=== PATIENT | female | born 1935 | race Caucasian/White ===

== ENCOUNTER 2017-01-07 10:56 | Outpatient (CLI) | payer MEDICARE, OTHER | END 2017-01-07 10:57 | disposition home or self-care (01) | DX: N64.59 Other signs and symptoms in breast (principal); Z85.3 Personal history of malignant neoplasm of breast ==

== ENCOUNTER 2018-06-25 19:34 | Inpatient (IN) | payer MEDICARE, OTHER ==
--- NOTE | 2018-06-25 20:09 | ED Physician Documentation ---
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: Mastectomy HEENT: Cataracts, Tonsil/Adenoidectomy - Present Medications Home Medications: Ambulatory Orders Medication Instructions Recorded Confirmed Home Medications Unobtainable 04/22/14 04/22/14 [HOME MEDICATIONS UNOBTAINABLE] - Allergies Allergies/Adverse Reactions: Allergies Allergy/AdvReac Type Severity Reaction Status Date / Time Unable to Assess Allergy Verified 06/25/18 19:44 - Social History Does the pt smoke?: No Smoking Status: Never smoker Does the pt drink ETOH?: Yes ETOH Use: Wine Does the pt have substance abuse?: No Results - Vitals Vitals: Vital Signs - 24 hr 06/25/18 19:39 Temperature 36.3 C L Heart Rate 110 H Respiratory 20 Rate Blood Pressure 155/79 H O2 Saturation 98 Oxygen O2 Source [With Activity] Room air O2 Source Room air PD MEDICAL DECISION MAKING - Sepsis Event Vital Signs: Vital Signs - 24 hr 06/25/18 19:39 Temperature 36.3 C L Heart Rate 110 H Respiratory 20 Rate Blood Pressure 155/79 H O2 Saturation 98 Oxygen O2 Source [With Activity] Room air O2 Source Room air
[2018-06-25] MEDS ORDERED: SODIUM CHLORIDE 0.9% 1,000 ML IV ONE (20:58)
[2018-06-25 20:59] LABS: TROPONIN I 0.07 ng/mL (<0.49)
[2018-06-25 21:01] LABS: CREATINE KINASE MB 25.8 ng/mL (0.6-6.3)
[2018-06-25 21:18] LABS: BASOPHILS # (AUTO) 0.1 10^3/uL (0.0-0.1); BASOPHILS % (AUTO) 0.4 %; CALCIUM 9.6 mg/dL (8.5-10.3); CREATININE 1.2 mg/dL (0.4-1.0); HGB - HEMOGLOBIN 15.6 g/dL (12.0-16.0); LYMPHOCYTES # (AUTO) 1.1 10^3/uL (1.5-3.5); LYMPHOCYTES % (AUTO) 7.4 %; MEAN CORPUSCULAR HEMOGLOBIN 30.5 pg (27.0-31.0); MEAN CORPUSCULAR HGB CONC 33.7 g/dL (32.0-36.0); MEAN CORPUSCULAR VOLUME 90.3 fL (81.0-99.0); MEAN PLATELET VOLUME 7.8 fL (7.9-10.8); MONOCYTES # (AUTO) 1.1 10^3/uL (0.0-1.0); MONOCYTES % (AUTO) 6.9 %; NEUTROPHILS # (AUTO) 13.1 10^3/uL (1.5-6.6); NEUTROPHILS % (AUTO) 85.3 %; PLT - PLATELET COUNT 335 10^3/uL (130-450); RED BLOOD COUNT 5.14 10^6/uL (4.20-5.40); RED CELL DISTRIBUTION WIDTH 13.2 % (12.0-15.0); WHITE BLOOD COUNT 15.4 x10^3/uL (4.8-10.8)
[2018-06-25] MEDS ORDERED: SODIUM CHLORIDE 0.9% 1,000 ML IV STA (23:23)
[2018-06-25 23:43] LABS: BILIRUBIN,URINE NEGATIVE (NEGATIVE); GLUCOSE, URINE (UA) NEGATIVE (NEGATIVE); KETONES,URINE (UA) TRACE mg/dL (NEGATIVE); LEUKOCYTE ESTERASE, URINE NEGATIVE (NEGATIVE); NITRITE,URINE NEGATIVE (NEGATIVE); OCCULT BLOOD,URINE NEGATIVE (NEGATIVE); PROTEIN,URINE NEGATIVE (NEGATIVE); UROBILINOGEN,URINE 0.2 (NORMAL) E.U./dL (NORMAL)
[2018-06-25 23:44] LABS: CLARITY,URINE CLEAR (CLEAR)
[2018-06-25] MEDS ORDERED: ONDANSETRON ODT 4 MG TABLET TL PRN (23:54)
[2018-06-25] MEDS ORDERED: SODIUM CHLORIDE FLUSH 0.9% 10 ML SYRINGE IVP PRN (23:54)
[2018-06-25] MEDS ORDERED: oxyCODONE 5 MG TABLET PO PRN (23:54)
[2018-06-25] MEDS ORDERED: ONDANSETRON 4 MG/2 ML VIAL IVP PRN (23:54)
[2018-06-26] MEDS: SODIUM CHLORIDE 0.9% 1,000 ML IV SCH ×2 (01:28→11:34)
[2018-06-26] MEDS: SODIUM CHLORIDE FLUSH 0.9% 10 ML SYRINGE IVP SCH ×3 (01:29→16:50)
[2018-06-26 02:36] LABS: BASOPHILS # (AUTO) 0.1 10^3/uL (0.0-0.1); BASOPHILS % (AUTO) 1.2 %; EOSINOPHILS % (AUTO) 0.1 %; HGB - HEMOGLOBIN 12.9 g/dL (12.0-16.0); LYMPHOCYTES # (AUTO) 1.3 10^3/uL (1.5-3.5); LYMPHOCYTES % (AUTO) 12.7 %; MEAN CORPUSCULAR HEMOGLOBIN 31.4 pg (27.0-31.0); MEAN CORPUSCULAR HGB CONC 34.6 g/dL (32.0-36.0); MEAN CORPUSCULAR VOLUME 90.7 fL (81.0-99.0); MEAN PLATELET VOLUME 7.8 fL (7.9-10.8); MONOCYTES # (AUTO) 0.8 10^3/uL (0.0-1.0); MONOCYTES % (AUTO) 7.2 %; NEUTROPHILS # (AUTO) 8.2 10^3/uL (1.5-6.6); NEUTROPHILS % (AUTO) 78.8 %; PLT - PLATELET COUNT 250 10^3/uL (130-450); RED BLOOD COUNT 4.11 10^6/uL (4.20-5.40); RED CELL DISTRIBUTION WIDTH 13.1 % (12.0-15.0); WHITE BLOOD COUNT 10.5 x10^3/uL (4.8-10.8)
[2018-06-26 02:40] LABS: CALCIUM 8.1 mg/dL (8.5-10.3); CREATININE 0.9 mg/dL (0.4-1.0)
--- NOTE | 2018-06-26 02:50 | HISTORY & PHYSICAL EXAMINATION ---
Chief Complaint - Chief Complaint Chief Complaint: laying on floor for 2 days at home History of Present Illness - Admitted From Admitted From:: home/ER - History Obtained From Records Reviewed: [facility] History obtained from: patient and Dr. Acevedo Exam Limitations: none - History of Present Illness HPI Comment/Other: She is an exceedingly pleasant, cheerful elderly woman who is last encounter with our hospital was an admission in 2013 when she was a little inebriated, fell and hurt her self. She has not been hospitalized since. She regards herself is healthy. She lives with her in their own home. Even though he had a stroke, he was still the "boss" in the family and paid the bills and made most of the major decisions. He had a stroke 20 years ago. He fell this last week and they were worried that he had another stroke, and had a laceration to his scalp, and was not ready to go home yet and went to rehab at [facility]. She had just returned from visiting him yesterday when she just found herself so overcome with weakness she gradually sat herself down on the floor in her house. She does not describe falling or tripping. She did not describe loss of consciousness. There is no chest pain, palpitations, shortness of breath. She is vague about her p.o. intake. She thinks that she ate and drank enough in the last week but she is not sure. It was very stressful having her in the hospital and then go to [facility]. She denies any antecedent illness of fever, chills, coughing. No sore throat, runny nose. She denies abdominal pain, diarrhea. No urgency, frequency dysuria. She lay on the floor all day yesterday, overnight, and into today. The only reason she is not on the floor anymore is that her friend went to go check on her and found her there and called EMS. Initial temperature was 36.3. Pulse was 110 and blood pressure 155/79 and saturating 98% on room air. She was evaluated by Dr. Acevedo and other than generalized weakness, she was an alert cheerful lady with a vague affect. Her potassium was low 3.1, creatinine was elevated at 1.2, and her CK was 1672. Troponin was 0.07. White cell count was elevated at 15.4 thousand. Chest x-ray was negative and urinalysis was negative she is still relatively weak, and is felt to be dehydrated. The mechanism of why she lay on the floor for the last day and a half is not clear. 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 Social History Notes: She was born and raised in the [facility]. She is to her third for 30 years now. She laughs and explains that her current was the best man at her first wedding. She had 2 sons with her first . One son lives in [place] and one son lives in [facility]. She endorses drinking 1-2 glasses of wine a day only. She smoked when she was a teenager and never smoked beyond that. She denies any recreational substance abuse. - Substance History Use: Uses substance without health or social issues: NONE Abuse: Recurrent use of substance despite neg consequences: NONE Dependence: Experiences withdrawal or developed tolerances: NONE - POLST Patient has POLST: No POLST Status: Full Code (She really has never thought about this. And because she cannot decide tonight, by default she will be full code.) Meds/Allgy - Home Medications Home Medications: Ambulatory Orders Medication Instructions Recorded Confirmed Hydrochlorothiazide 12.5 mg 06/25/18 - Allergies Allergies/Adverse Reactions: Allergies Allergy/AdvReac Type Severity Reaction Status Date / Time Unable to Assess Allergy Verified 06/25/18 19:44 Review of Systems - Constitutional Constitutional: reports: Weakness. denies: Fatigue, Fever, Malaise, Poor appetite - Eyes Eyes: denies: Pain, Irritation, Amaurosis, Blurred vision, Vision loss - Ears, Nose & Throat Ears, Nose & Throat: reports: Hearing loss. denies: Hearing aids, Tinnitus, Vertigo, Nasal congestion, Postnasal drainage, Sore throat, Hoarseness - Cardiovascular Cariovascular: denies: Irregular heart rate, Palpitations, Chest pain, Edema, Syncope, Exertional dyspnea, Decr. exercise tolerance - Respiratory Respiratory: denies: Cough, Sputum production, Wheezing, Snoring, SOB at rest, SOB with exertion - Gastrointestinal Gastrointestinal: reports: Constipation. denies: Abdominal pain, Abdominal distention, Diarrhea, Rectal bleeding, Bloody stools, Nausea, Vomiting, Coffee grounds emesis, Reflux/heartburn - Genitourinary Genitourinary: reports: Incontinence. denies: Dysuria, Frequency, Flank pain - Musculoskeletal Musculoskeletal: reports: Muscle pain (On her butt and back from laying all night long), Muscle aches, Muscle weakness (Diffuse). denies: Stiffness, Limited range of motion, Gout, Joint pain - Integumentary Integumentary: denies: Rash, Pruritis, Lesions, Pigment changes - Neurological Neurological: reports: General weakness. denies: Focal weakness, Headache, Dizziness, Memory problems, Pre-existing deficit - Psychiatric Psychiatric: denies: Depression, Anxiety, Suicidal Prior Level of Functionality: She states that she still can dress herself and feed herself. Drives a car. She does not pay the bills her does and is having to learn that now that he is at [facility]. While she is able to take care of herself with regards to self-care needs and hygiene, she fears that she is going to need some help around the home with simple things such as cooking, cleaning up the house. She does not use a walker or cane. Exam - Vital Signs Reviewed Vital Signs: Yes Vital Signs: Vital Signs x48h Temp Pulse Pulse Resp BP BP Pulse Ox 06/26/18 01:35 36.5 C 85 16 140/50 H 97 06/26/18 01:11 86 16 131/72 H 99 06/26/18 00:31 91 18 163/76 H 100 06/25/18 23:11 62 18 165/95 H 100 06/25/18 19:39 36.3 C L 110 H 20 155/79 H 98 - Physical Exam General Appearance: positive: No acute distress, Alert, Other (Elderly white female who looks stated age, well-groomed well-developed, very cheerful. With fluids being given in the emergency room she says she already feels so much better.) Eyes Bilateral: negative: PERRL, EOMI ENT: positive: Dry mucous membranes Neck: positive: No JVD. negative: Stiff neck, Carotid bruit Respiratory: positive: Chest non-tender. negative: Wheezes, Rales, Rhonchi Peripheral Pulses: positive: 2+ Abdomen: positive: Non-tender, No organomegaly, Nml bowel sounds, No distention Back: positive: Nml inspection Skin: positive: Warm, Dry Extremities: positive: Full ROM, No pedal edema Neurologic/Psychiatric: positive: Oriented x3, CN's nml (2-12), Motor nml (She needs a 1 person standby assist to transfer from a laying to sitting position and then standing position. She uses a walker for balance and has a slow shuffling gait.). negative: Facial droop, Slurred/abnml speech Conclusion/Plan - Problem List (1) Episode of generalized weakness Conclusion/Plan: Really and truly an unknown cause. In an elderly person who has been stressed with recent life events, she most likely has not been eating or drinking as she should. But she is well-nourished, well-developed. She is not disheveled. She is still well-groomed. She does not have evidence of infection. Urinalysis is negative for UTI. Her physical exam does not warrant a CT of the head since she is alert and oriented with no focal deficits and no symptoms of focal findings. With a history of alcohol intoxication 4 years ago, it might be suspected that she overdid it. But she is adamant that she is only had 1 or 2 drinks and that was a few days ago. Plan: Place in acute patient stay for hydration, physical and occupational therapy. The mechanism of her injury is still not clear. (2) Rhabdomyolysis Conclusion/Plan: From laying on the floor for close to 2 days. Plan: Check CPK daily IV fluids with 0.9 normal saline Qualifiers: Rhabdomyolysis type: non-traumatic Qualified Code(s): M62.82 - Rhabdomyolysis (3) Acute kidney injury Conclusion/Plan: Her creatinine is above her baseline of less than 1. Suspect it is the dehydration and mild rhabdomyolysis. Plan, IV fluids for hydration and recheck BMP in the morning (4) Essential hypertension Conclusion/Plan: She is 130-165 systolic. Because of dehydration I do not want to resume her hydrochlorothiazide for now. Resume when she is at baseline (5) Hypokalemia Conclusion/Plan: Supplement with oral potassium - Lab Results Fish Bones: 06/26/18 02:24 06/26/18 02:24 - EKG Results EKG Interpreted Independently: No EKG Comparison: Unchanged from prior EKG Core Measures - Anticipated LOS I expect patient to be DC'd or transferred within 96 hours.: Yes - DVT/VTE - Prophylaxis VTE/DVT Device ordered at admit?: Yes
[2018-06-26] MEDS: POTASSIUM CHLORIDE 20 MEQ TABLET PO SCH ×3 (04:09→11:34)
--- NOTE | 2018-06-26 07:31 | ED Physician Documentation ---
History of Present Illness - Stated complaint Stated Complaint: GLF - Chief complaint Chief Complaint: General - History obtained from History obtained from: Patient, Friend - History of Present Illness Timing: Yesterday Pain level max: 0 Pain level now: 0 Improved by: no ameliorating factors Worsened by: no exacerbating factors Associated symptoms: weakness - Additonal information Additional information: patient's was recently placed at [facility]; patient visited him yesterday and upon returning home, she had gradual onset of generalized weakness that worsened and she eventually became too weak to ambulate. She lay down on the floor due to the weakness (denies falling, denies injury) and was unable to get back up due to weakness. She thinks she lay down on the floor sometime in the late afternoon. This evening, her friends checked on her and found her on the floor and thus called 911. Patient denies similar symptoms in the past. She feels she might not have had enough PO intake yesterday and attributes the weakness to this. Review of Systems Constitutional: reports: Reviewed and negative Eyes: reports: Reviewed and negative Nose: reports: Reviewed and negative Cardiac: reports: Reviewed and negative Respiratory: reports: Reviewed and negative GI: reports: Reviewed and negative : denies: Dysuria, Frequency, Incontinent Skin: reports: Reviewed and negative Musculoskeletal: reports: Reviewed and negative Neurologic: reports: Generalized weakness. 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 And because she cannot decide tonight, by default she will be full code.) PD ED PE NORMAL - Vitals Vital signs reviewed: Yes - General General: Alert and oriented X 3, No acute distress, Well developed/nourished - HEENT HEENT: PERRL, EOMI, Other (tacky/pasty mucous membranes) - Neck Neck: Supple, no meningeal sign - Cardiac Cardiac: RRR - Respiratory Respiratory: No respiratory distress, Clear bilaterally - Abdomen Abdomen: Soft, Non tender - Back Back: No spinal TTP - Derm Derm: Normal color, Warm and dry, No rash - Extremities Extremities: Normal ROM s pain, No edema - Neuro Neuro: Alert and oriented X 3, block press operator 2-12 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, No motor deficit, No sensory deficit, Normal speech Eye Opening: Spontaneous Motor: Obeys Commands Verbal: Oriented GCS Score: 15 PD ED PE EXPANDED - Cardiac Cardiac: Murmur Present (2/6 KENNEDY at base) Results - Vitals Vitals: Vital Signs - 24 hr 06/25/18 06/25/18 19:39 23:11 Temperature 36.3 C L Heart Rate 110 H 62 Respiratory 20 18 Rate Blood Pressure 155/79 H 165/95 H O2 Saturation 98 100 Oxygen O2 Source [With Activity] Room air O2 Source Room air - EKG (time done) No standard instances Rate: Rate (enter#) (106), Tachy Rhythm: Sinus tachycardia, LAE [place]: LAD Intervals: Normal CO QRS: LVH Ischemia: Normal ST segments, T wave inversion (III, aVF) - Labs Labs: Laboratory Tests 06/25/18 06/25/18 06/25/18 20:35 20:35 20:35 WBC 15.4 H RBC 5.14 Hgb 15.6 Hct 46.4 MCV 90.3 MCH 30.5 MCHC 33.7 RDW 13.2 Plt Count 335 MPV 7.8 L Neut # (Auto) 13.1 H Lymph # (Auto) 1.1 L Glynn # (Auto) 1.1 H Eos # (Auto) 0.0 Baso # (Auto) 0.1 Absolute Nucleated RBC 0.01 Nucleated RBC % 0.0 Sodium 138 Potassium 3.1 L Chloride 97 L Carbon Dioxide 27 Anion Gap 14.0 H BUN 20 Creatinine 1.2 H Estimated GFR (MDRD) 43 L Glucose 135 H Lactic Acid Calcium 9.6 Total Creatine Kinase 1672 H* CK-MB (CK-2) 25.8 H Troponin I 0.07 Urine Color Urine Clarity Urine pH Ur Specific [place] Urine Protein Urine Glucose (UA) Urine Ketones Urine Occult Blood Urine Nitrite Urine Bilirubin Urine Urobilinogen Ur Leukocyte Esterase Ur Microscopic Review Urine Culture Comments 06/25/18 06/25/18 20:35 23:35 WBC RBC Hgb Hct MCV MCH MCHC RDW Plt Count MPV Neut # (Auto) Lymph # (Auto) Glynn # (Auto) Eos # (Auto) Baso # (Auto) Absolute Nucleated RBC Nucleated RBC % Sodium Potassium Chloride Carbon Dioxide Anion Gap BUN Creatinine Estimated GFR (MDRD) Glucose Lactic Acid 2.0 Calcium Total Creatine Kinase CK-MB (CK-2) Troponin I Urine Color YELLOW Urine Clarity CLEAR Urine pH 7.0 Ur Specific [place] 1.010 Urine Protein NEGATIVE Urine Glucose (UA) NEGATIVE Urine Ketones TRACE Urine Occult Blood NEGATIVE Urine Nitrite NEGATIVE Urine Bilirubin NEGATIVE Urine Urobilinogen 0.2 (NORMAL) Ur Leukocyte Esterase NEGATIVE Ur Microscopic Review NOT INDICATED Urine Culture Comments NOT INDICATED PD MEDICAL DECISION MAKING - ED course Complexity details: reviewed old records, reviewed results, re-evaluated patient, considered differential, d/w patient ED course: generalized weakness. No focal c/o nor findings, and thus no emergent imaging (such as CTH) indicated. her weakness improved, but not resolved, with IV hydrat ion. Elevated CPK (c/w prolonged time of lying on the floor) and elevated creatinine (previously normal in 2013). Plan is to admit for ongoing rehydration and rechecks of her abnormal labs. - Sepsis Event Vital Signs: Vital Signs - 24 hr 06/25/18 06/25/18 19:39 23:11 Temperature 36.3 C L Heart Rate 110 H 62 Respiratory 20 18 Rate Blood Pressure 155/79 H 165/95 H O2 Saturation 98 100 Oxygen O2 Source [With Activity] Room air O2 Source Room air Departure - Departure Disposition: [facility] DC/Xfer Clinical Impression: Muscle weakness, Acute kidney injury Rhabdomyolysis Qualifiers: Rhabdomyolysis type: non-traumatic Qualified Code(s): M62.82 - Rhabdomyolysis Condition: Stable Discharge Date/Time: 06/26/18 01:13
[2018-06-26 09:18] LABS: CALCIUM 8.1 mg/dL (8.5-10.3); CREATININE 0.8 mg/dL (0.4-1.0)
[2018-06-26] MEDS: POLYETHYLENE GLYCOL 3350 17 GM PACKET PO SCH (09:26)
--- NOTE | 2018-06-26 14:21 | PROVIDER PROGRESS NOTE ---
Assessment/Plan - Problem List (1) Episode of generalized weakness Assessment/Plan: Really and truly an unknown cause. In an elderly person who has been stressed with recent life events, she admits she has not been eating or drinking as she should. She does not have evidence of infection. Urinalysis is negative for UTI. Her physical exam does not warrant a CT of the head since she is alert and oriented with no focal deficits and no symptoms of focal findings. With a history of alcohol intoxication 4 years ago, it might be suspected that she overdid it. But she is adamant that she is only had 1 or 2 drinks and that was a few days ago. Patient given IVFs overnight and already much improved She was able to get up and walk with PT around the halls with a walker She does not appear to need rehab She stated she ate more this morning than she has eaten in a week (2) Rhabdomyolysis Conclusion/Plan: From laying on the floor for close to 2 days. CK went up to 1683 this am She does not have renal failure COntinue IVFs and monitor CK daily Qualifiers: Rhabdomyolysis type: non-traumatic Qualified Code(s): M62.82 - Rhabdomyolysis (3) Acute kidney injury Conclusion/Plan: Her creatinine is above her baseline of less than 1. Suspect it is the dehydration and mild rhabdomyolysis. Kit Planner down to 0.8 Resolved with IVFs (4) Essential hypertension Conclusion/Plan: HCTZ held secondary to dehydration BP elevated but stable for now (5) Hypokalemia Conclusion/Plan: Supplement with oraland IV potassium K is 3.1 - Current Meds Current Meds: Current Medications Generic Name Dose Route Start Last Admin Trade Name Davey PRN Reason Stop Dose Admin Polyethylene Glycol 17 gm 06/26/18 09:00 06/26/18 09:26 Miralax PO Not Given DAILY DEIUDONNE Sodium Chloride 10 ml 06/26/18 01:00 06/26/18 11:34 Normal Saline Flush 0.9% IVP 10 ml 0100,[id number],1700 DIEUDONNE Administration - Lab Result Lab results reviewed: Yes Fish Bone Diagrams: 06/26/18 02:24 06/26/18 08:20 - Diagnostic Imaging Results Diagnostic Imaging Results: Final report reviewed - Additional Planning Condition/Complexity: Improved My Orders: My Active Orders 06/26/18 15:00 NS 0.9% w/20 MEQ KCL @ 125 mls/hr Ns W/20 Meq KCl [Normal Saline 0.9% W/20 Meq KCl] 1,000 ml IV 125 mls/hr Consult/Specialty: PT Plan Discussed with:: Patient Time Spent: 31-60 minutes Subjective - Subjective Patient Reports: Feeling Better, Resting Comfortably, No Complaints, Other (She states she has a good appetite and feels better. SHe states she has been depressed due to her husbands recent stroke. Not eating well at home. She feels much stronger today.) Nursing Reports: No Complaints Objective Vital Signs: Vital Signs - 24 hr 06/25/18 06/25/18 06/26/18 19:39 23:11 00:31 Temperature 36.3 C L Heart Rate 110 H 62 91 Heart Rate [ Radial] Respiratory 20 18 18 Rate Blood Pressure 155/79 H 165/95 H 163/76 H Blood Pressure [Left Brachial artery] O2 Saturation 98 100 100 06/26/18 06/26/18 06/26/18 01:11 01:35 07:52 Temperature 36.5 C 36.3 C L Heart Rate 86 Heart Rate [ 85 83 Radial] Respiratory 16 16 18 Rate Blood Pressure 131/72 H Blood Pressure 140/50 H 143/53 H [Left Brachial artery] O2 Saturation 99 97 100 Oxygen O2 Source [With Activity] Room air O2 Source Room air I&O (Last 24 Hrs): Intake and Output Totals x24h 06/24/18 06/25/18 06/26/18 23:59 23:59 23:59 Intake Total 1000 3110 Balance 1000 3110 General: Alert, Oriented x3, Cooperative, No acute distress HEENT: Atraumatic, PERRLA, EOMI, Other (Dry mucus membranes) Neck: Supple, No JVD, No thyromegaly, +2 carotid pulse wo bruit, No LAD Lymphatic: no adenopathy Neuro: Alert, Non Focal, CN 2-12 Grossly Intact, Oriented Times 3 Cardiovascular: Regular rate, Normal S1, Normal S2, No murmurs Respiratory: Chest non-tender, No respiratory distress, Breath sounds nml Abdomen: Normal bowel sounds, Soft, No tenderness, No hepatospenomegaly Extremities: No clubbing, No cyanosis, No edema, Normal pulses Skin: No rashes, No breakdown - Results Results: Laboratory Results WBC 10.5 x10^3/uL (4.8-10.8) 06/26/18 02:24 RBC 4.11 10^6/uL (4.20-5.40) L 06/26/18 02:24 Hgb 12.9 g/dL (12.0-16.0) 06/26/18 02:24 Hct 37.3 % (37.0-47.0) 06/26/18 02:24 MCV 90.7 fL (81.0-99.0) 06/26/18 02:24 MCH 31.4 pg (27.0-31.0) H 06/26/18 02:24 MCHC 34.6 g/dL (32.0-36.0) 06/26/18 02:24 RDW 13.1 % (12.0-15.0) 06/26/18 02:24 Plt Count 250 10^3/uL (130-450) 06/26/18 02:24 MPV 7.8 fL (7.9-10.8) L 06/26/18 02:24 Neut # (Auto) 8.2 10^3/uL (1.5-6.6) H 06/26/18 02:24 Lymph # (Auto) 1.3 10^3/uL (1.5-3.5) L 06/26/18 02:24 [place] # (Auto) 0.8 10^3/uL (0.0-1.0) 06/26/18 02:24 Eos # (Auto) 0.0 10^3/uL (0.0-0.7) 06/26/18 02:24 Baso # (Auto) 0.1 10^3/uL (0.0-0.1) 06/26/18 02:24 Absolute Nucleated RBC 0.02 x10^3/uL 06/26/18 02:24 Nucleated RBC % 0.2 /100WBC 06/26/18 02:24 Sodium 138 mmol/L (135-145) 06/26/18 08:20 Potassium 3.1 mmol/L (3.5-5.0) L 06/26/18 08:20 Chloride 105 mmol/L (101-111) 06/26/18 08:20 Carbon Dioxide 24 mmol/L (21-32) 09/28/18 08:20 Anion Gap 9.0 (6-13) 06/26/18 08:20 BUN 17 mg/dL (6-20) 06/26/18 08:20 Creatinine 0.8 mg/dL (0.4-1.0) 06/26/18 08:20 Estimated GFR (MDRD) 69 (>89) L 06/26/18 08:20 Glucose 77 mg/dL (70-100) 06/26/18 08:20 Lactic Acid 1.1 mmol/L (0.5-2.2) 06/26/18 00:10 Calcium 8.1 mg/dL (8.5-10.3) L 06/26/18 08:20 Total Creatine Kinase 1683 IU/L (22-269) H* 06/26/18 08:20 CK-MB (CK-2) 25.8 ng/mL (0.6-6.3) H 06/25/18 20:35 Troponin I 0.05 ng/mL (<0.49) 06/26/18 02:24 Urine Color YELLOW 06/25/18 23:35 Urine Clarity CLEAR (CLEAR) 06/25/18 23:35 Urine pH 7.0 PH (5.0-7.5) 06/25/18 23:35 Ur Specific [place] 1.010 (1.002-1.030) 06/25/18 23:35 Urine Protein NEGATIVE mg/dL (NEGATIVE) 06/25/18 23:35 Urine Glucose (UA) NEGATIVE mg/dL (NEGATIVE) 06/25/18 23:35 Urine Ketones TRACE mg/dL (NEGATIVE) 06/25/18 23:35 Urine Occult Blood NEGATIVE (NEGATIVE) 06/25/18 23:35 Urine Nitrite NEGATIVE (NEGATIVE) 06/25/18 23:35 Urine Bilirubin NEGATIVE (NEGATIVE) 06/25/18 23:35 Urine Urobilinogen 0.2 (NORMAL) E.U./dL (NORMAL) 06/25/18 23:35 Ur Leukocyte Esterase NEGATIVE (NEGATIVE) 06/25/18 23:35 Ur Microscopic Review NOT INDICATED 06/25/18 23:35 Urine Culture Comments NOT INDICATED 06/25/18 23:35 Ethyl Alcohol < 5.0 mg/dL 06/26/18 02:24 ABX Reporting Has patient been on IV antibiotics over the past 48 hours?: No Current Medications - Current Medications Current Medications: Active Medications Generic Name Dose Route Start Last Admin Trade Name Freq PRN Reason Stop Dose Admin Potassium Chloride/Sodium Chloride 1,000 mls @ 125 mls/hr 06/26/18 15:00 Normal Saline 0.9% W/20 Meq Kcl IV .Q8H [facility] Ondansetron HCl 4 mg 06/25/18 23:54 Zofran Inj IVP Q6HR PRN Nausea / Vomiting Ondansetron HCl 4 mg 06/25/18 23:54 Zofran Odt TL Q6HR PRN Nausea / Vomiting Oxycodone HCl 5 mg 06/25/18 23:54 Roxicodone PO Q4HR PRN Pain 5 to 7 Polyethylene Glycol 17 gm 06/26/18 09:00 06/26/18 09:26 Miralax PO Not Given DAILY [facility] Sodium Chloride 10 ml 06/25/18 23:54 Normal Saline Flush 0.9% IVP PRN PRN NEEDED PER PROVIDER ORDERS Sodium Chloride 10 ml 06/26/18 01:00 06/26/18 11:34 Normal Saline Flush 0.9% IVP 10 ml 0100,0900,1700 [facility] Administration Ascorbic Acid [Vitamin C] 500 mg PO DAILY 06/26/18 Multivitamin W/Minerals [Theragran M] 1 tab PO DAILY 06/26/18 Triamterene/Hydrochlorothiazid [Triamterene-Hctz 75-50 mg Tab] 1 tab PO DAILY 06/26/18 Verapamil HCl [Verapamil ER] 120 mg PO DAILY 06/26/18
[2018-06-26] MEDS: NS W/20 MEQ KCL 1,000 ML IV SCH (15:24)
[2018-06-27] MEDS: NS W/20 MEQ KCL 1,000 ML IV SCH ×2 (00:20→08:22)
[2018-06-27] MEDS: SODIUM CHLORIDE FLUSH 0.9% 10 ML SYRINGE IVP SCH ×2 (07:23→07:24)
[2018-06-27] MEDS: POLYETHYLENE GLYCOL 3350 17 GM PACKET PO SCH (07:24)
[2018-06-27 08:12] VITALS: BP 178/69
[2018-06-27 08:17] LABS: BASOPHILS # (AUTO) 0.1 10^3/uL (0.0-0.1); EOSINOPHILS # (AUTO) 0.1 10^3/uL (0.0-0.7); EOSINOPHILS % (AUTO) 1.6 %; HGB - HEMOGLOBIN 13.1 g/dL (12.0-16.0); LYMPHOCYTES # (AUTO) 1.1 10^3/uL (1.5-3.5); LYMPHOCYTES % (AUTO) 12.5 %; MEAN CORPUSCULAR HEMOGLOBIN 31.5 pg (27.0-31.0); MEAN CORPUSCULAR HGB CONC 33.7 g/dL (32.0-36.0); MEAN CORPUSCULAR VOLUME 93.3 fL (81.0-99.0); MEAN PLATELET VOLUME 8.3 fL (7.9-10.8); MONOCYTES # (AUTO) 0.5 10^3/uL (0.0-1.0); NEUTROPHILS # (AUTO) 6.7 10^3/uL (1.5-6.6); NEUTROPHILS % (AUTO) 78.9 %; PLT - PLATELET COUNT 239 10^3/uL (130-450); RED BLOOD COUNT 4.15 10^6/uL (4.20-5.40); RED CELL DISTRIBUTION WIDTH 13.5 % (12.0-15.0); WHITE BLOOD COUNT 8.6 x10^3/uL (4.8-10.8)
[2018-06-27 08:35] LABS: ALBUMIN 3.2 g/dL (3.2-5.5); ALBUMIN/GLOBULIN RATIO 1.2 (1.0-2.2); ALKALINE PHOSPHATASE 54 IU/L (42-121); ALT ALANINE AMINOTRANSFERASE 35 IU/L (10-60); AST ASPARTATE AMINOTRANSFERASE 72 IU/L (10-42); BILIRUBIN,TOTAL 0.9 mg/dL (0.2-1.0); BUN - BLOOD UREA NITROGEN 15 mg/dL (6-20); CALCIUM 7.7 mg/dL (8.5-10.3); CARBON DIOXIDE - CO2 21 mmol/L (21-32); CHLORIDE 110 mmol/L (101-111); CREATININE 0.8 mg/dL (0.4-1.0); GFR - MDRD 69 (>89); GLUCOSE 98 mg/dL (70-100); MAGNESIUM 1.4 mg/dL (1.7-2.8); PHOSPHORUS 1.8 mg/dL (2.5-4.6); SODIUM 138 mmol/L (135-145); TOTAL PROTEIN 5.8 g/dL (6.7-8.2)
[2018-06-27 08:36] LABS: CK- CREATINE KINASE 1377 IU/L (22-269); VBG PH 7.35 (7.31-7.41)
[2018-06-27] MEDS ORDERED: TRIAMT/HCTZ 37.5 MG/25 MG CAPSULE PO SCH (09:00)
[2018-06-27] MEDS ORDERED: VERAPAMIL ER 120 MG TABLET PO SCH (09:00)
--- NOTE | 2018-06-27 09:18 | Discharge Plan ---
Discharge Plan Disposition: 01 Home, Self Care Condition: Stable Diet: Regular Activity Restrictions: No Restrictions Shower Restrictions: No Driving Restrictions: No Assistance Devices: Walker Weight Bearing: Full Weight Instruction Topics: Rhabdomyolysis No Smoking: If you smoke, Please STOP! Call for help. Follow-up with: Rosalva Ortiz MD [Primary Care Provider] -
--- NOTE | 2018-06-27 09:21 | DISCHARGE SUMMARY ---
Discharge Summary Admit Date: 06/25/18 Discharge Date: 06/27/18 Discharging Provider: Rey Sawyer MD Primary Care Provider: Rosalva Ortiz MD Code Status: Attempt Resuscitation Condition at Discharge: Good Discharge Disposition: 01 Home, Self Care - DIAGNOSES Admission Diagnoses: 1. Episode of generalized weakness 2. Rhabdomyolysis 3. Acute kidney injury 4. Essential hypertension 5. Hypokalemia Discharge Diagnoses with Status of Each Condition: 1. Episode of generalized weakness: Resolved 2. Rhabdomyolysis: Improving 3. Acute kidney injury: Resolved 4. Essential hypertension: Stable 5. Hypokalemia: Resolved 6. Hypocalcemia: Stable 7. Hypomagnesemia: Stable 8. Hypophosphatemia: Stable - HPI History of Present Illness: She is an exceedingly pleasant, cheerful elderly woman who is last encounter with our hospital was an admission in 2013 when she was a little inebriated, fell and hurt her self. She has not been hospitalized since. She regards herself is healthy. She lives with her in their own home. Even though he had a stroke, he was still the "boss" in the family and paid the bills and made most of the major decisions. He had a stroke 20 years ago. He fell this last week and they were worried that he had another stroke, and had a laceration to his scalp, and was not ready to go home yet and went to rehab at [facility]. She had just returned from visiting him yesterday when she just found herself so overcome with weakness she gradually sat herself down on the floor in her house. She does not describe falling or tripping. She did not describe loss of consciousness. There is no chest pain, palpitations, shortness of breath. She is vague about her p.o. intake. She thinks that she ate and drank enough in the last week but she is not sure. It was very stressful having her in the hospital and then go to [facility]. She denies any antecedent illness of fever, chills, coughing. No sore throat, runny nose. She denies abdominal pain, diarrhea. No urgency, frequency dysuria. She lay on the floor all day yesterday, overnight, and into today. The only reason she is not on the floor anymore is that her friend went to go check on her and found her there and called EMS. Initial temperature was 36.3. Pulse was 110 and blood pressure 155/79 and saturating 98% on room air. She was evaluated by Dr. Acevedo and other than generalized weakness, she was an alert cheerful lady with a vague affect. Her potassium was low 3.1, creatinine was elevated at 1.2, and her CK was 1672. Troponin was 0.07. White cell count was elevated at 15.4 thousand. Chest x-ray was negative and urinalysis was negative she is still relatively weak, and is felt to be dehydrated. The mechanism of why she lay on the floor for the last day and a half is not clear. - HOSPITAL COURSE Hospital Course: Patient was admitted to the [facility] and given IV fluids and electrolyte r eplacement. Over the course of 2 days the patient's CK was improving her strength was back to her baseline. Patient was walking the halls with walker and no assistance. Patient was eating and drinking well and appeared well hydrated. Patient's acute kidney injury resolved. The patient was given electrolyte replacements for potassium, calcium, phosphorus and magnesium. Patient felt her overall strength was back to her baseline and she was discharged home. The patient felt that her symptoms may have been caused by poor oral intake and lack of hydration due to the fact that she been stressed taking care of her . The patient was given social work support and information about caregivers to help with her once he returns home from [facility]. The patient was also prescribed a front wheeled walker. Patient was discharged home in stable condition and will continue on her chronic medical management. - ALLERGIES Allergies/Adverse Reactions: Allergies Allergy/AdvReac Type Severity Reaction Status Date / Time latex Allergy Severe Rash Verified 06/27/18 01:53 pollen extracts Allergy Severe Respiratory Verified 06/27/18 01:53 wool Allergy Severe Rash Verified 06/27/18 01:53 dust Allergy Severe Respiratory Uncoded 06/27/18 01:53 - MEDICATIONS Home Medications: Ambulatory Orders Medication Instructions Recorded Confirmed Ascorbic Acid [Vitamin C] 500 mg PO DAILY 06/26/18 06/26/18 Multivitamin W/Minerals [Theragran 1 tab PO DAILY 06/26/18 06/26/18 M] Triamterene/Hydrochlorothiazid 1 tab PO DAILY 06/26/18 06/26/18 [Triamterene-Hctz 75-50 mg Tab] Verapamil HCl [Verapamil ER] 120 mg PO DAILY 06/26/18 06/26/18 - PHYSICAL EXAM AT DISCHARGE General Appearance: positive: No acute distress, Alert Eyes Bilateral: positive: Normal inspection, PERRL, EOMI, No lid inflammation, Conjunctivae nml, No scleral icterus ENT: positive: ENT inspection nml, Pharynx nml, No signs of dehydration. negative: Purulent nasal drainage, Pharyngeal erythema, Oral lesions Neck: positive: Nml inspection, Thyroid nml, No JVD, Trachea midline. negative: Lymphadenopathy (R), Lymphadenopathy (L), Carotid bruit, Tracheal deviation Respiratory: positive: Chest non-tender, No respiratory distress, Breath sounds nml. negative: Wheezes, Rales, Rhonchi Cardiovascular: positive: Regular rate & rhythm, No murmur, No gallop Peripheral Pulses: positive: 2+ Abdomen: positive: Non-tender, No organomegaly, Nml bowel sounds, No distention. negative: Guarding, Rebound Back: positive: Nml inspection. negative: CVA tenderness (R), CVA tenderness (L) Skin: positive: Color nml, No rash, Warm. negative: Diaphoresis, Pallor, Skin rash Extremities: positive: Non-tender, Full ROM, Nml appearance, No pedal edema Neurologic/Psychiatric: positive: Oriented x3, CN's nml (2-12), Motor nml, Sensation nml, Mood/affect nml - LABS Result Diagrams: 06/27/18 08:09 06/27/18 08:09 Other Lab Results: Laboratory Results WBC 8.6 x10^3/uL (4.8-10.8) 06/27/18 08:09 RBC 4.15 10^6/uL (4.20-5.40) L 06/27/18 08:09 Hgb 13.1 g/dL (12.0-16.0) 06/27/18 08:09 Hct 38.7 % (37.0-47.0) 06/27/18 08:09 MCV 93.3 fL (81.0-99.0) 06/27/18 08:09 MCH 31.5 pg (27.0-31.0) H 06/27/18 08:09 MCHC 33.7 g/dL (32.0-36.0) 06/27/18 08:09 RDW 13.5 % (12.0-15.0) 06/27/18 08:09 Plt Count 239 10^3/uL (130-450) 06/27/18 08:09 MPV 8.3 fL (7.9-10.8) 06/27/18 08:09 Neut # (Auto) 6.7 10^3/uL (1.5-6.6) H 06/27/18 08:09 Lymph # (Auto) 1.1 10^3/uL (1.5-3.5) L 06/27/18 08:09 [place] # (Auto) 0.5 10^3/uL (0.0-1.0) 06/27/18 08:09 Eos # (Auto) 0.1 10^3/uL (0.0-0.7) 06/27/18 08:09 Baso # (Auto) 0.1 10^3/uL (0.0-0.1) 06/27/18 08:09 Absolute Nucleated RBC 0.00 x10^3/uL 06/27/18 08:09 Nucleated RBC % 0.0 /100WBC 06/27/18 08:09 VBG pH 7.350 (7.31-7.41) 06/27/18 08:09 Ionized Calcium 1.06 mmol/L (1.15-1.33) L 06/27/18 08:09 Sodium 138 mmol/L (135-145) 06/27/18 08:09 Potassium 4.0 mmol/L (3.5-5.0) 06/27/18 08:09 Chloride 110 mmol/L (101-111) 06/27/18 08:09 Carbon Dioxide 21 mmol/L (21-32) 06/27/18 08:09 Anion Gap 7.0 (6-13) 06/27/18 08:09 BUN 15 mg/dL (6-20) 06/27/18 08:09 Creatinine 0.8 mg/dL (0.4-1.0) 06/27/18 08:09 Estimated GFR (MDRD) 69 (>89) L 06/27/18 08:09 Glucose 98 mg/dL (70-100) 06/27/18 08:09 Lactic Acid 1.1 mmol/L (0.5-2.2) 06/26/18 00:10 Calcium 7.7 mg/dL (8.5-10.3) L 06/27/18 08:09 Ionized Calcium YES 06/27/18 08:09 Phosphorus 1.8 mg/dL (2.5-4.6) L 06/27/18 08:09 Magnesium 1.4 mg/dL (1.7-2.8) L 06/27/18 08:09 Total Bilirubin 0.9 mg/dL (0.2-1.0) 06/27/18 08:09 AST 72 IU/L (10-42) H 06/27/18 08:09 ALT 35 IU/L (10-60) 06/27/18 08:09 Alkaline Phosphatase 54 IU/L (42-121) 06/27/18 08:09 Total Creatine Kinase 1377 IU/L (22-269) H* 06/27/18 08:09 CK-MB (CK-2) 25.8 ng/mL (0.6-6.3) H 06/25/18 20:35 Troponin I 0.05 ng/mL (<0.49) 06/26/18 02:24 Total Protein 5.8 g/dL (6.7-8.2) L 06/27/18 08:09 Albumin 3.2 g/dL (3.2-5.5) 06/27/18 08:09 Globulin 2.6 g/dL (2.1-4.2) 06/27/18 08:09 Albumin/Globulin Ratio 1.2 (1.0-2.2) 06/27/18 08:09 Urine Color YELLOW 06/25/18 23:35 Urine Clarity CLEAR (CLEAR) 06/25/18 23:35 Urine pH 7.0 PH (5.0-7.5) 06/25/18 23:35 Ur Specific [place] 1.010 (1.002-1.030) 06/25/18 23:35 Urine Protein NEGATIVE mg/dL (NEGATIVE) 06/25/18 23:35 Urine Glucose (UA) NEGATIVE mg/dL (NEGATIVE) 06/25/18 23:35 Urine Ketones TRACE mg/dL (NEGATIVE) 06/25/18 23:35 Urine Occult Blood NEGATIVE (NEGATIVE) 06/25/18 23:35 Urine Nitrite NEGATIVE (NEGATIVE) 06/25/18 23:35 Urine Bilirubin NEGATIVE (NEGATIVE) 06/25/18 23:35 Urine Urobilinogen 0.2 (NORMAL) E.U./dL (NORMAL) 06/25/18 23:35 Ur Leukocyte Esterase NEGATIVE (NEGATIVE) 06/25/18 23:35 Ur Microscopic Review NOT INDICATED 06/25/18 23:35 Urine Culture Comments NOT INDICATED 06/25/18 23:35 Ethyl Alcohol < 5.0 mg/dL 06/26/18 02:24 - FOLLOW UP Follow Up: Patient was discharged home after episode of rhabdomyolysis and generalized weakness. Patient improved with IV fluids and electrolyte replacement. Patient was advised to drink plenty of fluids and continue to keep up with her nutrition. Patient was provided information on caregiver support for her and counseled on stress management. The patient was also prescribed a walker. - TIME SPENT Time Spent in Discharge (Minutes): 35
[2018-06-27] MEDS ORDERED: CALCIUM CARB (OYSTER SHELL) 500 MG TABLET PO SCH (10:00)
[2018-06-27] MEDS ORDERED: MAGNESIUM OXIDE 400 MG TABLET PO SCH (10:00)
[2018-06-27] MEDS ORDERED: NEUTRA-PHOS 250 MG TABLET PO SCH (12:00)
== END 2018-06-27 13:00 | disposition home or self-care (01) | DRG 683 ==
LOC: ED 19:34 → MS2 23:54
PROVIDERS: ADMIT Specialist; ATTEND Internal Medicine
DX: R53.1 Weakness (principal); N17.9 Acute kidney failure, unspecified; M62.82 Rhabdomyolysis; E86.0 Dehydration; E87.6 Hypokalemia; E83.51 Hypocalcemia; E83.42 Hypomagnesemia; E83.39 Other disorders of phosphorus metabolism
CPT/HCPCS: 36415; 80048; 80053; 80320; 81001; 81003; 82330; 82550; 82553; 83605; 83735; 84100; 84484; 85025; 87086; 93005; 96360; 96361; 99284

== ENCOUNTER 2018-09-18 09:19 | Outpatient (CLI) | payer MEDICARE, OTHER | END 2018-09-18 09:20 | disposition critical access hospital (66) | LOC: EMS 09:19 | PROVIDERS: ATTEND Surgery | DX: R26.81 Unsteadiness on feet (principal) | CPT/HCPCS: A0425; A0429 ==

== ENCOUNTER 2018-09-18 09:51 | Observation (INO) | payer MEDICARE, OTHER ==
[2018-09-18] MEDS ORDERED: ACETAMINOPHEN 325 MG TABLET PO STA (11:29)
--- NOTE | 2018-09-18 11:32 | ED Physician Documentation ---
PD HPI Fall - Stated complaint Stated Complaint: Fall - Chief complaint Chief Complaint: Neuro - History obtained from History obtained from: Patient - History of Present Illness Mechanism of injury: Other (This is an 83-year-old woman who [place] She usually lives with her but she says he is in a halfway because of recent fall. She says she was sitting on the carpet watching the birds and then tried to get up and fell forward onto her elbows. There is no other injury. She does seem slightly confused. 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 HEENT: None Psych: None, Depression Musculoskeletal: None Derm: None - Past Surgical History General: Colonoscopy /CYBER SECURITY ADMINISTRATOR: Mastectomy HEENT: Cataracts, Tonsil/Adenoidectomy - Present Medications Home Medications: Ambulatory Orders Medication Instructions Recorded Confirmed Ascorbic Acid [Vitamin C] 500 mg PO DAILY 06/26/18 09/18/18 Multivitamin W/Minerals [Theragran 1 tab PO DAILY 06/26/18 09/18/18 M] Triamterene/Hydrochlorothiazid 1 tab PO DAILY 06/26/18 09/18/18 [Triamterene-Hctz 75-50 mg Tab] Verapamil HCl [Verapamil ER] 120 mg PO DAILY 06/26/18 09/18/18 Calcium Carbonate/Vitamin D3 1 tab PO DAILY 09/18/18 09/18/18 [Calcium 600-Vit D3 400 Tablet] - Allergies Allergies/Adverse Reactions: Allergies Allergy/AdvReac Type Severity Reaction Status Date / Time latex Allergy Severe Rash Verified 09/18/18 10:06 pollen extracts Allergy Severe Respiratory Verified 09/18/18 10:06 wool Allergy Severe Rash Verified 09/18/18 10:06 dust Allergy Severe Respiratory Uncoded 09/18/18 10:06 - Social History Does the pt smoke?: No Smoking Status: Never smoker Does the pt drink ETOH?: Yes ETOH Use: Wine Does the pt have substance abuse?: No - Immunizations Immunizations are current?: No Immunizations: TDAP >10years/unknown - POLST Patient has POLST: No POLST Status: Full Code (She really has never thought about this. And because she cannot decide tonight, by default she will be full code.) PD ED PE NORMAL - Vitals Vital signs reviewed: Yes - General General: Other (She is alert and oriented to person, she knows she is in the hospital but is a slow stuttering historian. 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 Eye Opening: Spontaneous Motor: Obeys Commands Verbal: Confused GCS Score: 14 Results - Vitals Vitals: Vital Signs - 24 hr 09/18/18 09/18/18 10:03 13:08 Temperature 37.5 C Heart Rate 95 98 Respiratory 12 14 Rate Blood Pressure 155/106 H 145/74 H O2 Saturation 99 96 Oxygen O2 Source [] Room air O2 Source Room air - EKG (time done) 1245 Rate: Rate (enter#) (94) Rhythm: NSR (with PAC) [place]: Normal Intervals: Normal TX QRS: LVH, Low voltage Ischemia: No: ST elevation c/w ischemia Computer interpretation: Agree with computer - Labs Labs: Laboratory Tests 09/18/18 09/18/18 09/18/18 10:30 11:36 11:36 WBC 18.5 H RBC 4.64 Hgb 14.5 Hct 41.7 MCV 89.9 MCH 31.3 H MCHC 34.8 RDW 12.3 Plt Count 261 MPV 8.0 Neut # (Auto) 17.0 H Lymph # (Auto) 0.5 L [place] # (Auto) 1.1 H Eos # (Auto) 0.0 Baso # (Auto) 0.0 Absolute Nucleated RBC 0.02 Nucleated RBC % 0.1 Manual Slide Review Indicated Platelet Estimate NORMAL (130-450,000) Platelet Morphology NORMAL APPEARANCE RBC Morph Micro Appear NORMAL APPEARANCE PT 11.9 INR 1.1 Sodium Potassium Chloride Carbon Dioxide Anion Gap BUN Creatinine Estimated GFR (MDRD) Glucose Calcium Magnesium Total Bilirubin AST ALT Alkaline Phosphatase Total Creatine Kinase Troponin I Total Protein Albumin Globulin Albumin/Globulin Ratio Lipase Urine Color YELLOW Urine Clarity HAZY Urine pH 7.0 Ur Specific [place] 1.025 Urine Protein 100 H Urine Glucose (UA) NEGATIVE Urine Ketones TRACE Urine Occult Blood SMALL H Urine Nitrite NEGATIVE Urine Bilirubin NEGATIVE Urine Urobilinogen 0.2 (NORMAL) Ur Leukocyte Esterase NEGATIVE Urine RBC 11-25 H Urine WBC 0-3 Ur Squamous Epith Cells MOD Squamous H Urine Bacteria Rare Urine Casts 3-5 Granular Casts Ur Microscopic Review INDICATED Urine Culture Comments NOT INDICATED Ethyl Alcohol 09/18/18 09/18/18 09/18/18 11:36 11:36 12:55 WBC RBC Hgb Hct MCV MCH MCHC RDW Plt Count MPV Neut # (Auto) Lymph # (Auto) [place] # (Auto) Eos # (Auto) Baso # (Auto) Absolute Nucleated RBC Nucleated RBC % Manual Slide Review Platelet Estimate Platelet Morphology RBC Morph Micro Appear PT INR Sodium 131 L Potassium 3.4 L Chloride 92 L Carbon Dioxide 28 Anion Gap 11.0 BUN 16 Creatinine 0.8 Estimated GFR (MDRD) 69 L Glucose 104 H Calcium 9.8 Magnesium 1.7 Total Bilirubin 1.5 H AST 75 H ALT 30 Alkaline Phosphatase 67 Total Creatine Kinase 1785 H* Troponin I 0.29 0.28 Total Protein 6.8 Albumin 3.8 Globulin 3.0 Albumin/Globulin Ratio 1.3 Lipase 18 L Urine Color Urine Clarity Urine pH Ur Specific [place] Urine Protein Urine Glucose (UA) Urine Ketones Urine Occult Blood Urine Nitrite Urine Bilirubin Urine Urobilinogen Ur Leukocyte Esterase Urine RBC Urine WBC Ur Squamous Epith Cells Urine Bacteria Urine Casts Ur Microscopic Review Urine Culture Comments Ethyl Alcohol < 5.0 - Rads (name of study) CT Head Radiology: EMP read contemporaneously (NAD) Bilat elbow XRS Radiology: EMP read contemporaneously (GISELE, thomas chgs) 1v chest Radiology: EMP read contemporaneously (NAD) PD MEDICAL DECISION MAKING - ED course ED course: This is an 83-year-old woman who lives alone on and seems either confused or demented who spent an unknown time of time on the ground and could not get up and has what looks like rug rader on her elbows. Workup demonstrates modest leukocytosis without a source and rhabdomyolysis as well as an indeterminate troponin with a nonischemic EKG. The troponin was repeated prior to admission to make sure that it was not rapidly rising and it was basically stable. Spoke with Dr. Sawyer for admission at 1:37 PM. Departure - Departure Disposition: 66 [facility] DC/Xfer Clinical Impression: Muscle weakness, Elevated troponin Rhabdomyolysis Qualifiers: Rhabdomyolysis type: non-traumatic Qualified Code(s): M62.82 - Rhabdomyolysis Condition: Serious
[2018-09-18 11:34] LABS: BILIRUBIN,URINE NEGATIVE (NEGATIVE); GLUCOSE, URINE (UA) NEGATIVE (NEGATIVE); KETONES,URINE (UA) TRACE mg/dL (NEGATIVE); LEUKOCYTE ESTERASE, URINE NEGATIVE (NEGATIVE); NITRITE,URINE NEGATIVE (NEGATIVE); OCCULT BLOOD,URINE SMALL (NEGATIVE); PROTEIN,URINE 100 mg/dL (NEGATIVE); UROBILINOGEN,URINE 0.2 (NORMAL) E.U./dL (NORMAL)
[2018-09-18 11:35] LABS: CLARITY,URINE HAZY (CLEAR)
[2018-09-18 11:43] LABS: BACTERIA,URINE Rare /HPF (None Seen); CASTS, URINE 3-5 Granular Casts /LPF; SQUAMOUS EPITHELIAL CELL,UR MOD Squamous (<= Few)
[2018-09-18 11:50] LABS: HGB - HEMOGLOBIN 14.5 g/dL (12.0-16.0); LYMPHOCYTES # (AUTO) 0.5 10^3/uL (1.5-3.5); LYMPHOCYTES % (AUTO) 2.5 %; MEAN CORPUSCULAR HEMOGLOBIN 31.3 pg (27.0-31.0); MEAN CORPUSCULAR HGB CONC 34.8 g/dL (32.0-36.0); MEAN CORPUSCULAR VOLUME 89.9 fL (81.0-99.0); MONOCYTES # (AUTO) 1.1 10^3/uL (0.0-1.0); MONOCYTES % (AUTO) 5.9 %; NEUTROPHILS % (AUTO) 91.6 %; PLT - PLATELET COUNT 261 10^3/uL (130-450); RED BLOOD COUNT 4.64 10^6/uL (4.20-5.40); RED CELL DISTRIBUTION WIDTH 12.3 % (12.0-15.0); WHITE BLOOD COUNT 18.5 x10^3/uL (4.8-10.8)
[2018-09-18 11:59] LABS: INR 1.1 (0.8-1.2); PT - PROTHROMBIN TIME 11.9 secs (9.9-12.6)
[2018-09-18 12:10] LABS: ALBUMIN 3.8 g/dL (3.2-5.5); ALBUMIN/GLOBULIN RATIO 1.3 (1.0-2.2); ALKALINE PHOSPHATASE 67 IU/L (42-121); ALT ALANINE AMINOTRANSFERASE 30 IU/L (10-60); AST ASPARTATE AMINOTRANSFERASE 75 IU/L (10-42); BILIRUBIN,TOTAL 1.5 mg/dL (0.2-1.0); BUN - BLOOD UREA NITROGEN 16 mg/dL (6-20); CALCIUM 9.8 mg/dL (8.5-10.3); CARBON DIOXIDE - CO2 28 mmol/L (21-32); CHLORIDE 92 mmol/L (101-111); CREATININE 0.8 mg/dL (0.4-1.0); GFR - MDRD 69 (>89); GLUCOSE 104 mg/dL (70-100); LIPASE 18 U/L (22-51); MAGNESIUM 1.7 mg/dL (1.7-2.8); SODIUM 131 mmol/L (135-145); TOTAL PROTEIN 6.8 g/dL (6.7-8.2)
[2018-09-18 12:11] LABS: CK- CREATINE KINASE 1785 IU/L (22-269); PLATELET ESTIMATE, MANUAL NORMAL (130-450,000) (NORMAL); PLATELET MORPHOLOGY NORMAL APPEARANCE (NORMAL); RBC MORPHOLOGY (MULTIPLE) NORMAL APPEARANCE (NORMAL)
--- NOTE | 2018-09-18 12:30 | XRAY Report ---
Reason: altered Procedure Date: 09/18/2018 Accession Number: [id number] / [id number] Procedure: XR - Chest 1 View X-Ray CPT Code: 85454 FULL RESULT: EXAM: CHEST RADIOGRAPHY EXAM DATE: 09/18/2018 11:38 AM. CLINICAL HISTORY: Fall with injury to elbows. Altered mental status. COMPARISON: CHEST 1 VIEW 04/22/2014 9:09 PM. TECHNIQUE: 1 view. FINDINGS: Lungs/Pleura: No focal opacities evident. No pleural effusion. No pneumothorax. Mediastinum: Within exam limitations, the cardiomediastinal contour is normal. Other: None. IMPRESSION: Normal single view chest. RADIA
--- NOTE | 2018-09-18 12:37 | XRAY Report ---
Reason: elbow injuries Procedure Date: 09/18/2018 Accession Number: [id number] / [id number] Procedure: XR - Elbow 3 View BILAT CPT Code: FULL RESULT: EXAM: 1. Right Elbow Radiography 2. Left Elbow Radiography EXAM DATE: 09/18/2018 11:38 AM. CLINICAL HISTORY: Elbow injuries. COMPARISON: None. TECHNIQUE: 3 views each elbow. FINDINGS: Right: Bones: There is a remote-appearing fracture of the medial epicondyle with a 16 mm detached fragment containing marrow and by 12 mm. Two smaller well-corticated osseous bodies are seen adjacent to the lateral epicondyle likely remote chip or avulsion fracture fragments. There is severe circumferential osteophyte of the radial head and neck with mild osteophyte of the olecranon, coronoid process and capitellum. Presence of significant degenerative changes limits evaluation for acute fracture, but none is appreciated. Joints: As above. Probable small effusion. Soft Tissues: Mild medial soft tissue swelling. Left: Bones: Normal. No fractures or bone lesions. Joints: Normal. No effusion. No subluxation. Soft Tissues: Normal. No soft tissue swelling. IMPRESSION: 1. 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 Mild medial soft tissue swelling, but no definite acute fracture appreciated. 2. Normal left elbow radiographs. RADIA
--- NOTE | 2018-09-18 12:43 | CT Report ---
Reason: altered Procedure Date: 09/18/2018 Accession Number: [id number] / [id number] Procedure: CT - Head W/O CPT Code: FULL RESULT: EXAM: CT HEAD EXAM DATE: 09/18/2018 12:10 PM. CLINICAL HISTORY: Altered. COMPARISON: HEAD W/O 04/22/2014 9:06 PM. TECHNIQUE: Multiaxial CT images were obtained from the foramen magnum to the vertex. Reformats: Sagittal and coronal. IV contrast: None. In accordance with CT protocol optimization, one or more of the following dose reduction techniques were utilized for this exam: automated exposure control, adjustment of mA and/or KV based on patient size, or use of iterative reconstructive technique. FINDINGS: Parenchyma: No intraparenchymal hemorrhage. No evidence of mass, midline shift, or CT findings of infarction. Benson-white differentiation is distinct. Patchy low attenuation in the periventricular white matter consistent with microvascular ischemic change of aging. Extraaxial Spaces: Normal for age. No subdural or epidural collections identified. Stable sessile right parafalcine calcification. Ventricles: Normal in size and position. Sinuses and Orbits: Imaged paranasal sinuses, orbits, and mastoids show no significant abnormality. Bones: No evidence of fracture or calvarial defect. Other: None. IMPRESSION: No evidence of acute infarction, fracture or intracranial injury. Aging appropriate changes. RADIA
[2018-09-18] MEDS ORDERED: ASPIRIN CHEW 81 MG TABLET PO STA (12:51)
[2018-09-18] MEDS ORDERED: NS W/20 MEQ KCL 1,000 ML IV STA (13:37)
[2018-09-18] MEDS ORDERED: ZOLPIDEM 5 MG TABLET PO PRN (13:38)
[2018-09-18] MEDS ORDERED: SODIUM CHLORIDE FLUSH 0.9% 10 ML SYRINGE IVP PRN (13:38)
[2018-09-18] MEDS ORDERED: PROMETHAZINE 25 MG/1 ML VIAL IM PRN (13:38)
[2018-09-18] MEDS ORDERED: HYDROcod/ACETAM 10 MG/325 MG TABLET PO PRN (13:38)
[2018-09-18] MEDS ORDERED: PROCHLORPERAZINE 10 MG/2 ML VIAL IVP PRN (13:38)
[2018-09-18] MEDS ORDERED: HYDROcod/ACETAM 5/325 MG TABLET PO PRN (13:38)
[2018-09-18] MEDS ORDERED: ONDANSETRON 4 MG/2 ML VIAL IVP PRN (13:38)
[2018-09-18] MEDS ORDERED: ACETAMINOPHEN 325 MG TABLET PO PRN (13:38)
[2018-09-18] MEDS ORDERED: POTASSIUM CHLORIDE 20 MEQ TABLET PO SCH (14:12)
--- NOTE | 2018-09-18 14:16 | HISTORY & PHYSICAL EXAMINATION ---
Chief Complaint - Chief Complaint Chief Complaint: Generalized Weakness History of Present Illness - Admitted From Admitted From:: Emergency Department - History Obtained From Records Reviewed: Yes History obtained from: Patient Exam Limitations: None - History of Present Illness HPI Comment/Other: The patient is an extremely pleasant 83-year-old female with a past medical history significant for hypertension and chronic constipation who was hospitalized about 3 months ago for an episode of generalized weakness, rhabdom yolysis, acute kidney injury and dehydration she improved with IV fluids over the course of just 2 days and was discharged home. The patient was living with her up until just recently when her was [facility]. She states that since her was placed that [facility] she has been losing weight. She states that it is because that she does not eat as much as she does when she has her around. She also states that she has not been drinking a whole lot of fluid. She does admit to drinking 1 glass of wine every night and states that she may drink more if she has visitors over. She states that she previously went to the health club which she stopped doing since her has moved to [facility]. She states that she goes to see her once a day and still drives. The patient presents to the emergency department today because she was so weak that she could not get up from the floor. The patient states that she had a recent fall a few days ago where she scraped up her elbows. She states that earlier today she was sitting on her carpeted floor looking out through the window at the birds. She states that when she tried to get up she was unable to get up. She states that she sat there until someone came by to help her out. She denies having had any vomiting, nausea or diarrhea. She denies any changes in her appetite. She denies any fevers or chills. She denies any dysuria, abdominal pain or any focal neurologic deficits. The patient denies any chest pain or shortness of breath. Patient denies any headaches, blurred vision, runny nose, sore throat, nasal congestion, difficulty swallowing, orthopnea, PND, increased lower extremity swelling, joint swelling, joint pain, muscle aches, back pain, neck stiffness, polyuria, polydipsia or any focal neurologic deficits. On presentation to the emergency department the patient was afebrile and slightly hypertensive and tachycardic. The patient was not in any respiratory distress and was saturating well on room air. The patient underwent routine lab work which did reveal a leukocytosis of 18.5, mild hypo-natremia of 131, hypokalemia of 3.4 and an elevated total creatinine kinase of 1785. The patient's initial troponin was also mildly elevated at 0.29. A repeat troponin was 0.28. The patient did undergo EKG which did not show any ST elevations or ischemic changes. The patient's urinalysis was negative for infection but did show 11-25 RBCs. The patient's alcohol level was negative. The patient underwent a CT of her head which showed no evidence of acute infarction, fracture or intracranial injury. The patient also underwent an elbow x-ray as she did have scrapes on her elbows from a previous fall a few days earlier. 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 Mild medial soft tissue swelling but no definitive fracture was appreciated. The patient also had a chest x-ray which was normal. The patient continued to be weak in the emergency department and was unable to ambulate on her own. Given that she lives alone it was not felt that she could be safely discharged from the emergency department. Also given that she had a elevated CPK and electrolyte abnormalities suggesting that she was dehydrated the patient was placed in observation for hydration and electrolyte rep lacements. The patient also had a mildly elevated troponin which will need further evaluation. 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 She is to her third for 30 years now. She laughs and explains that her current was the best man at her first wedding. She had 2 sons with her first . One son lives in [place] and one son lives in [facility]. She endorses drinking 1-2 glasses of wine a day only. She smoked when she was a teenager and never smoked beyond that. She denies any recreational substance abuse. Patients is in [facility] therefore patient is alone at home. - Substance History Use: Uses substance without health or social issues: NONE - POLST Patient has POLST: No POLST Status: Full Code (She really has never thought about this. And because she cannot decide tonight, by default she will be full code.) Meds/Allgy - Home Medications Home Medications: Ambulatory Orders Medication Instructions Recorded Confirmed Ascorbic Acid [Vitamin C] 500 mg PO DAILY 06/26/18 09/18/18 Multivitamin W/Minerals [Theragran 1 tab PO DAILY 06/26/18 09/18/18 M] Triamterene/Hydrochlorothiazid 1 tab PO DAILY 06/26/18 09/18/18 [Triamterene-Hctz 75-50 mg Tab] Verapamil HCl [Verapamil ER] 120 mg PO DAILY 06/26/18 09/18/18 Calcium Carbonate/Vitamin D3 1 tab PO DAILY 09/18/18 09/18/18 [Calcium 600-Vit D3 400 Tablet] - Allergies Allergies/Adverse Reactions: Allergies Allergy/AdvReac Type Severity Reaction Status Date / Time latex Allergy Severe Rash Verified 09/18/18 14:42 pollen extracts Allergy Severe Rash Verified 09/18/18 14:43 wool Allergy Severe Rash Verified 09/18/18 14:42 Review of Systems - Other Findings Other Findings: A comprehensive review of systems was performed the pertinent positives and negatives are stated above in the HPI and the remainder of the review of systems is negative. Prior Level of Functionality: Patient is independent living alone but struggling with her activities of daily living. Exam - Vital Signs Reviewed Vital Signs: Yes Vital Signs: Vital Signs x48h Temp Pulse Resp BP Pulse Ox 09/18/18 13:08 98 14 145/74 H 96 09/18/18 10:03 37.5 C 95 12 155/106 H 99 - Physical Exam General Appearance: positive: No acute distress, Alert, Other (Thin and frail) Eyes Bilateral: positive: Normal inspection, PERRL, EOMI, No lid inflammation, Conjunctivae nml, No scleral icterus ENT: positive: ENT inspection nml, Pharynx nml, Dry mucous membranes. negative: Purulent nasal drainage, Pharyngeal erythema, Oral lesions Neck: positive: Nml inspection, Thyroid nml, No JVD, Trachea midline. negative: Thyromegaly, Lymphadenopathy (R), Lymphadenopathy (L), Stiff neck, Carotid bruit, Tracheal deviation Respiratory: positive: Chest non-tender, No respiratory distress, Breath sounds nml. negative: Wheezes, Rales, Rhonchi Cardiovascular: positive: Regular rate & rhythm, No murmur, No gallop Peripheral Pulses: positive: 2+ Abdomen: positive: Non-tender, No organomegaly, Nml bowel sounds, No distention. negative: Guarding, Rebound, Hepatomegaly Back: positive: Nml inspection. negative: CVA tenderness (R), CVA tenderness (L) Skin: positive: Warm, Dry, Other (Bilateral elbows with bruising from recent fall.) Extremities: positive: Non-tender, Full ROM, Nml appearance, Pedal edema (Bilateral left worse than right.) Neurologic/Psychiatric: positive: Oriented x3, CN's nml (2-12), Motor nml, Sensation nml, Mood/affect nml Conclusion/Plan - Problem List (1) Generalized weakness Conclusion/Plan: Patient presented with generalized weakness that she was unable to get up from the floor at home. It appears her generalized weakness is likely secondary to being dehydrated. The patient has been eating and drinking much less since her has moved to [facility]. The patient was unable to get up from the floor earlier in the day. The patient's labs revealed that she was dehydrated as her sodium was low at 131, potassium was 3.4 and she had an elevated CK. The patient appeared to be dry on examination. She also had an elevated leukocytosis. Patient did not have any signs or symptoms of infection and her infectious workup was negative. The patient did have a mildly elevated troponin but her EKG was within normal limits. The patient appears to be failing to thrive at home alone as she is having weight loss with decreased oral intake and does not seem to be able to manage on her own. Plan: IV fluids for hydration Electrolyte replacement Monitor CPK Social work and physical therapy consults for possible placement or caregiver support at home. (2) Rhabdomyolysis Conclusion/Plan: The patient does present with rhabdomyolysis with a total CK of 1785. This is likely secondary to her being on the floor for an extended period of time before she was found and brought in by EMS. The patient does not have any evidence of renal failure. And aside from her potassium her other electrolytes are within normal limits. The patient will be given IV fluids and will continue to monitor her CK levels. Qualifiers: Rhabdomyolysis type: non-traumatic Qualified Code(s): M62.82 - Rhabdomyolysis (3) Elevated troponin Conclusion/Plan: The patient does have mildly elevated troponin on presentation with a troponin of 0.29 her repeat troponin I hour later was 0.28. The patient does not have any chest pain or shortness of breath. Her EKG does not show any ischemic changes. The patient did undergo an echocardiogram which reveals a normal left ventricular systolic function. With an impaired relaxation consistent with grade 1 diastolic dysfunction. There is no regional wall motion abnormality seen on the echocardiogram. The patient does not appear to have acute coronary syndrome the patient's troponin may be elevated secondary to dehydration. We will check troponin every 6 hours to ensure that it is stable or trending down. And monitor the patient on telemetry. (4) Leukocytosis Conclusion/Plan: The patient does have elevated white blood cell count of 18.5. This may be reactive due to her muscle breakdown and rhabdomyolysis or could be secondary to dehydration. Does not appear to be secondary to infection as the patient had an infectious workup which appears to be negative. The patient is not febrile and does not show any other signs or symptoms of infection. We will continue to monitor the patient's white blood cell count daily. Qualifiers: Leukocytosis type: leukemoid reaction Qualified Code(s): D72.823 - Leukemoid reaction (5) Hyponatremia Conclusion/Plan: Patient was hyponatremic on presentation with a sodium of 131. She appears to b e hypovolemic and has hypovolemic hyponatremia. Patient will be given IV fluids and will continue to monitor her sodium. (6) Elevated LFTs Conclusion/Plan: The patient does have mildly elevated LFTs with an AST of 75 and an total bilirubin of 1.5. The bilirubin is mildly elevated from her baseline and the AST is close to her previous baseline. The patient does admit to drinking wine daily. This may be the cause of her mildly elevated LFTs. She may also have mildly elevated LFTs due to her rhabdomyolysis. We will continue to monitor her LFTs daily. (7) Hypertension Conclusion/Plan: The patient does have a history of hypertension and is on verapamil and triamterene/hydrochlorothiazide at home. Given that the patient appears to be quite dehydrated we will hold her antihypertensive medications for now unless her blood pressure becomes significantly elevated. Even if we were to restart 1 of her blood pressure medications it would likely be verapamil as the triamterene/hydrochlorothiazide may be contributing to her dehydration. We will continue to monitor her blood pressure. Qualifiers: Hypertension type: essential hypertension Qualified Code(s): I10 - Essential (primary) hypertension (8) Hypokalemia Conclusion/Plan: The patient does have hypokalemia on presentation. This is likely secondary to dehydration. Which is likely secondary to poor oral intake. The patient will receive IV potassium and will continue to monitor her potassium levels. - Lab Results Lab results reviewed: Yes Fish Bones: 09/18/18 11:36 09/18/18 11:36 Other Lab Results: Laboratory Results WBC 18.5 x10^3/uL (4.8-10.8) H 09/18/18 11:36 RBC 4.64 10^6/uL (4.20-5.40) 09/18/18 11:36 Hgb 14.5 g/dL (12.0-16.0) 09/18/18 11:36 Hct 41.7 % (37.0-47.0) 09/18/18 11:36 MCV 89.9 fL (81.0-99.0) 09/18/18 11:36 MCH 31.3 pg (27.0-31.0) H 09/18/18 11:36 MCHC 34.8 g/dL (32.0-36.0) 09/18/18 11:36 RDW 12.3 % (12.0-15.0) 09/18/18 11:36 Plt Count 261 10^3/uL (130-450) 09/18/18 11:36 MPV 8.0 fL (7.9-10.8) 09/18/18 11:36 Neut # (Auto) 17.0 10^3/uL (1.5-6.6) H 09/18/18 11:36 Lymph # (Auto) 0.5 10^3/uL (1.5-3.5) L 09/18/18 11:36 [place] # (Auto) 1.1 10^3/uL (0.0-1.0) H 09/18/18 11:36 Eos # (Auto) 0.0 10^3/uL (0.0-0.7) 09/18/18 11:36 Baso # (Auto) 0.0 10^3/uL (0.0-0.1) 09/18/18 11:36 Absolute Nucleated RBC 0.02 x10^3/uL 09/18/18 11:36 Nucleated RBC % 0.1 /100WBC 09/18/18 11:36 Manual Slide Review Indicated 09/18/18 11:36 Platelet Estimate NORMAL (130-450,000) (NORMAL) 09/18/18 11:36 Platelet Morphology NORMAL APPEARANCE (NORMAL) 09/18/18 11:36 RBC Morph Micro Appear NORMAL APPEARANCE (NORMAL) 09/18/18 11:36 PT 11.9 secs (9.9-12.6) 09/18/18 11:36 INR 1.1 (0.8-1.2) 09/18/18 11:36 Sodium 131 mmol/L (135-145) L 09/18/18 11:36 Potassium 3.4 mmol/L (3.5-5.0) L 09/18/18 11:36 Chloride 92 mmol/L (101-111) L 09/18/18 11:36 Carbon Dioxide 28 mmol/L (21-32) 09/18/18 11:36 Anion Gap 11.0 (6-13) 09/18/18 11:36 BUN 16 mg/dL (6-20) 09/18/18 11:36 Creatinine 0.8 mg/dL (0.4-1.0) 09/18/18 11:36 Estimated GFR (MDRD) 69 (>89) L 09/18/18 11:36 Glucose 104 mg/dL (70-100) H 09/18/18 11:36 Calcium 9.8 mg/dL (8.5-10.3) 09/18/18 11:36 Magnesium 1.7 mg/dL (1.7-2.8) 09/18/18 11:36 Total Bilirubin 1.5 mg/dL (0.2-1.0) H 09/18/18 11:36 AST 75 IU/L (10-42) H 09/18/18 11:36 ALT 30 IU/L (10-60) 09/18/18 11:36 Alkaline Phosphatase 67 IU/L (42-121) 09/18/18 11:36 Total Creatine Kinase 1785 IU/L (22-269) H* 09/18/18 11:36 Troponin I 0.28 ng/mL (<0.49) 09/18/18 12:55 Total Protein 6.8 g/dL (6.7-8.2) 09/18/18 11:36 Albumin 3.8 g/dL (3.2-5.5) 09/18/18 11:36 Globulin 3.0 g/dL (2.1-4.2) 09/18/18 11:36 Albumin/Globulin Ratio 1.3 (1.0-2.2) 09/18/18 11:36 Lipase 18 U/L (22-51) L 09/18/18 11:36 Urine Color YELLOW 09/18/18 10:30 Urine Clarity HAZY (CLEAR) 09/18/18 10:30 Urine pH 7.0 PH (5.0-7.5) 09/18/18 10:30 Ur Specific [place] 1.025 (1.002-1.030) 09/18/18 10:30 Urine Protein 100 mg/dL (NEGATIVE) H 09/18/18 10:30 Urine Glucose (UA) NEGATIVE mg/dL (NEGATIVE) 09/18/18 10:30 Urine Ketones TRACE mg/dL (NEGATIVE) 09/18/18 10:30 Urine Occult Blood SMALL (NEGATIVE) H 09/18/18 10:30 Urine Nitrite NEGATIVE (NEGATIVE) 09/18/18 10:30 Urine Bilirubin NEGATIVE (NEGATIVE) 09/18/18 10:30 Urine Urobilinogen 0.2 (NORMAL) E.U./dL (NORMAL) 09/18/18 10:30 Ur Leukocyte Esterase NEGATIVE (NEGATIVE) 09/18/18 10:30 Urine RBC 11-25 /HPF (0-5) H 09/18/18 10:30 Urine WBC 0-3 /HPF (0-5) 09/18/18 10:30 Ur Squamous Epith Cells MOD Squamous (<= Few) H 09/18/18 10:30 Urine Bacteria Rare /HPF (None Seen) 09/18/18 10:30 Urine Casts 3-5 Granular Casts /LPF 09/18/18 10:30 Ur Microscopic Review INDICATED 09/18/18 10:30 Urine Culture Comments NOT INDICATED 09/18/18 10:30 Ethyl Alcohol < 5.0 mg/dL 09/18/18 11:36 - Diagnostic Imaging Results Diagnostic Imaging Results: positive: Final report reviewed Diagnostic Imaging Results Comments: CT head Impression: No evidence of acute infarction, fracture or intracranial injury. Aging appropriate changes. Elbow x-ray Impression: 1. 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 Mild medial soft tissue swelling, but no definite acute fracture appreciated. 2. Normal left elbow radiographs. Chest x-ray Impression: Normal single view chest - EKG Results EKG Interpreted Independently: Yes EKG Findings: No ST elevations or ischemic changes noted. Sinus rhythm. Core Measures - Anticipated LOS I expect patient to be DC'd or transferred within 96 hours.: Yes - DVT/VTE - Prophylaxis VTE/DVT Prophylaxis med ordered at admit?: Yes
[2018-09-18] MEDS: SODIUM CHLORIDE FLUSH 0.9% 10 ML SYRINGE IVP SCH (16:50)
[2018-09-18] MEDS: SODIUM CHLORIDE 0.9% 1,000 ML IV SCH (16:53)
[2018-09-18] MEDS: FAMOTIDINE 20 MG TABLET PO SCH (20:46)
[2018-09-18 22:03] LABS: MUDS CUTOFF CONCENTRATIONS CUTOFF CONC BELOW:
[2018-09-18 22:24] LABS: COCAINE SCREEN URINE NEGATIVE (NEGATIVE)
[2018-09-18 22:25] LABS: AMPHETAMINE SCREEN,URINE NEGATIVE (NEGATIVE); BENZODIAZEPINES SCREEN, URINE NEGATIVE (NEGATIVE); METHADONE SCREEN, URINE NEGATIVE (NEGATIVE); METHAMPHETAMINES SCREEN, URINE NEGATIVE (NEGATIVE); OPIATE SCREEN, URINE NEGATIVE (NEGATIVE); OXYCODONE SCREEN, URINE NEGATIVE (NEGATIVE); PROPOXYPHENE SCREEN, URINE NEGATIVE (NEGATIVE); TRICYCLIC ANTIDEPRESSANT,URINE NEGATIVE (NEGATIVE)
[2018-09-19] MEDS: SODIUM CHLORIDE 0.9% 1,000 ML IV SCH ×2 (00:01→10:12)
[2018-09-19] MEDS: NYSTATIN POWDER 15 GM TOP SCH ×2 (00:23→10:13)
[2018-09-19 06:47] LABS: BASOPHILS # (AUTO) 0.1 10^3/uL (0.0-0.1); BASOPHILS % (AUTO) 1.1 %; EOSINOPHILS % (AUTO) 0.1 %; HGB - HEMOGLOBIN 12.4 g/dL (12.0-16.0); LYMPHOCYTES # (AUTO) 1.5 10^3/uL (1.5-3.5); LYMPHOCYTES % (AUTO) 14.4 %; MEAN CORPUSCULAR HEMOGLOBIN 31.2 pg (27.0-31.0); MEAN CORPUSCULAR VOLUME 94.7 fL (81.0-99.0); MEAN PLATELET VOLUME 8.3 fL (7.9-10.8); MONOCYTES # (AUTO) 0.8 10^3/uL (0.0-1.0); MONOCYTES % (AUTO) 7.5 %; NEUTROPHILS # (AUTO) 8.1 10^3/uL (1.5-6.6); NEUTROPHILS % (AUTO) 76.9 %; PLT - PLATELET COUNT 231 10^3/uL (130-450); RED BLOOD COUNT 3.98 10^6/uL (4.20-5.40); RED CELL DISTRIBUTION WIDTH 12.4 % (12.0-15.0); WHITE BLOOD COUNT 10.6 x10^3/uL (4.8-10.8)
[2018-09-19 06:58] LABS: INR 1.1 (0.8-1.2); PT - PROTHROMBIN TIME 11.9 secs (9.9-12.6)
[2018-09-19 07:03] LABS: ALBUMIN/GLOBULIN RATIO 1.3 (1.0-2.2); BILIRUBIN,TOTAL 0.7 mg/dL (0.2-1.0); CALCIUM 8.8 mg/dL (8.5-10.3); CREATININE 0.8 mg/dL (0.4-1.0); MAGNESIUM 1.7 mg/dL (1.7-2.8); PHOSPHORUS 2.5 mg/dL (2.5-4.6); TOTAL PROTEIN 5.4 g/dL (6.7-8.2)
[2018-09-19] MEDS ORDERED: ENOXAPARIN 40 MG/0.4 ML SYRINGE SUBQ SCH (09:00)
[2018-09-19] MEDS ORDERED: POLYETHYLENE GLYCOL 3350 17 GM PACKET PO SCH (09:00)
[2018-09-19] MEDS: FAMOTIDINE 20 MG TABLET PO SCH (10:13)
[2018-09-19] MEDS: SODIUM CHLORIDE FLUSH 0.9% 10 ML SYRINGE IVP SCH ×2 (10:14)
--- NOTE | 2018-09-19 15:59 | Discharge Plan ---
Discharge Plan Disposition: 01 Home, Self Care Condition: Good Diet: Regular Activity Restrictions: Activity as Tolerated Shower Restrictions: No Driving Restrictions: No Assistance Devices: Walker Weight Bearing: Full Weight Additional Instructions or Follow Up instructions: You presented to the emergency department after you were found on the floor and you could not get up on your own. On presentation here you were found to be dehydrated and in rhabdomyolysis which is caused by muscle breakdown due to you being on the floor for an extended period of time. You were given IV fluids and your electrolytes were replaced with which you also had improved strength. You were seen by her physical therapist who recommended that you need to use a walker. We did not feel that you were safe to go home by herself therefore you were discharged home with your family member. The social work specialist also arranged for you to go into assisted living once they are able to assess you next week. We recommend that you follow-up with assisted living as it would be optimal for you to live somewhere where you had some assistance. You can continue on all your regular medications. Please follow-up with your primary care physician. No Smoking: If you smoke, Please STOP! Call for help. Follow-up with: Rosalva Ortiz MD [Primary Care Provider] -
--- NOTE | 2018-09-19 16:23 | DISCHARGE SUMMARY ---
Discharge Summary Admit Date: 09/18/18 Discharge Date: 09/19/18 Discharging Provider: Rey Sawyer MD Primary Care Provider: Rosalva Ortiz MD Code Status: Attempt Resuscitation Condition at Discharge: Good Discharge Disposition: 01 Home, Self Care - DIAGNOSES Admission Diagnoses: 1. Generalized weakness 2. Rhabdomyolysis 3. Elevated troponin 4. Leukocytosis 5. Hyponatremia 6. Elevated LFTs 7. Hypertension 8. Hypokalemia Discharge Diagnoses with Status of Each Condition: 1. Generalized weakness: Resolved 2. Rhabdomyolysis: Improved 3. Elevated troponin: Stable 4. Leukocytosis: Resolved 5. Hyponatremia: Resolved 6. Elevated LFTs: Improved 7. Hypertension: Stable 8. Hypokalemia: Resolved - HPI History of Present Illness: The patient is an extremely pleasant 83-year-old female with a past medical history significant for hypertension and chronic constipation who was hospitalized about 3 months ago for an episode of generalized weakness, rhabdomyolysis, acute kidney injury and dehydration she improved with IV fluids over the course of just 2 days and was discharged home. The patient was living with her up until just recently when her was placed at [facility] for rehabilitation. She states that since her was placed that carriage she has been losing weight. She states that it is because that she does not eat as much as she does when she has her around. She also states that she has not been drinking a whole lot of fluid. She does admit to drinking 1 glass of wine every night and states that she may drink more if she has visitors over. She states that she previously went to the health club which she stopped doing since her has moved to [facility]. She states that she goes to see her once a day and still drives. The patient presents to the emergency department today because she was so weak that she could not get up from the floor. The patient states that she had a recent fall a few days ago where she scraped up her elbows. She states that earlier today she was sitting on her carpeted floor looking out through the window at the birds. She states that when she tried to get up she was unable to get up. She states that she sat there until someone came by to help her out. She denies having had any vomiting, nausea or diarrhea. She denies any changes in her appetite. She denies any fevers or chills. She denies any dysuria, abdominal pain or any focal neurologic deficits. The patient denies any chest pain or shortness of breath. Patient denies any headaches, blurred vision, runny nose, sore throat, nasal congestion, difficulty swallowing, orthopnea, PND, increased lower extremity swelling, joint swelling, joint pain, muscle aches, back pain, neck stiffness, polyuria, polydipsia or any focal neurologic deficits. On presentation to the emergency department the patient was afebrile and slightly hypertensive and tachycardic. The patient was not in any respiratory distress and was saturating well on room air. The patient underwent routine lab work which did reveal a leukocytosis of 18.5, mild hypo-natremia of 131, hypokalemia of 3.4 and an elevated total creatinine kinase of 1785. The patient's initial troponin was also mildly elevated at 0.29. A repeat troponin was 0.28. The patient did undergo EKG which did not show any ST elevations or ischemic changes. The patient's urinalysis was negative for infection but did show 11-25 RBCs. The patient's alcohol level was negative. The patient underwent a CT of her head which showed no evidence of acute infarction, fracture or intracranial injury. The patient also underwent an elbow x-ray as she did have scrapes on her elbows from a previous fall a few days earlier. 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 Mild medial soft tissue swelling but no definitive fracture was appreciated. The patient also had a chest x-ray which was normal. The patient continued to be weak in the emergency department and was unable to ambulate on her own. Given that she lives alone it was not felt that she could be safely discharged from the emergency department. Also given that she had a elevated CPK and electrolyte abnormalities suggesting that she was dehydrated the patient was placed in observation for hydration and electrolyte replacements. The patient also had a mildly elevated troponin which will need further evaluation. - HOSPITAL COURSE Hospital Course: Patient was placed in observation overnight and given IV fluids and electrolyte replacements. The patient's troponins were trended and remained stable. The patient had no chest pain. Her EKG was unremarkable. The patient underwent an echocardiogram which did not show any wall motion abnormalities and had a normal ejection fraction. The patient's CK improved to 884 by the time of discharge. The patient's electrolytes improved. The patient's leukocytosis resolved. The patient was seen by physical therapy and was able to walk 150 feet with a walker. The patient does have a front wheeled walker at home. It was felt that the patient would not be safe to return home alone. The health and social care teacher attempted to set up the patient at an assisted living facility. She was able to get through to [facility] who were willing to take the patient but needed till Friday to assess the patient for admission. Since the patient was obs ervation she could not be kept in the hospital during this time. We were able to find a family member who was willing to take the patient home and care for her over the weekend until she is able to be assessed by an assisted living facility and admitted. The patient left the hospital in stable condition. She was given a prescription for her antihypertensive medications. She will follow- up with her primary care physician in the future. - ALLERGIES Allergies/Adverse Reactions: Allergies Allergy/AdvReac Type Severity Reaction Status Date / Time latex Allergy Severe Rash Verified 09/18/18 14:42 pollen extracts Allergy Severe Rash Verified 09/18/18 14:43 wool Allergy Severe Rash Verified 09/18/18 14:42 - MEDICATIONS Home Medications: Ambulatory Orders Medication Instructions Recorded Confirmed Ascorbic Acid [Vitamin C] 500 mg PO DAILY 06/26/18 09/18/18 Multivitamin W/Minerals [Theragran 1 tab PO DAILY 06/26/18 09/18/18 M] Triamterene/Hydrochlorothiazid 1 tab PO DAILY 06/26/18 09/18/18 [Triamterene-Hctz 75-50 mg Tab] Verapamil HCl [Verapamil ER] 120 mg PO DAILY 06/26/18 09/18/18 Calcium Carbonate/Vitamin D3 1 tab PO DAILY 09/18/18 09/18/18 [Calcium 600-Vit D3 400 Tablet] - PHYSICAL EXAM AT DISCHARGE General Appearance: positive: No acute distress, Alert Eyes Bilateral: positive: Normal inspection, PERRL, EOMI, No lid inflammation, Conjunctivae nml, No scleral icterus ENT: positive: ENT inspection nml, Pharynx nml, No signs of dehydration. negative: Purulent nasal drainage, Pharyngeal erythema, Oral lesions Neck: positive: Nml inspection, Thyroid nml, No JVD, Trachea midline. negative: Thyromegaly, Lymphadenopathy (R), Lymphadenopathy (L), Stiff neck, Carotid bruit, Tracheal deviation Respiratory: positive: Chest non-tender, No respiratory distress, Breath sounds nml. negative: Wheezes, Rales, Rhonchi Cardiovascular: positive: Regular rate & rhythm, No murmur, No gallop Peripheral Pulses: positive: 2+ Abdomen: positive: Non-tender, No organomegaly, Nml bowel sounds, No distention. negative: Guarding, Rebound, Hepatomegaly Back: positive: Nml inspection. negative: CVA tenderness (R), CVA tenderness (L) Skin: positive: Color nml, No rash, Warm. negative: Cyanosis, Diaphoresis, Pallor Extremities: positive: Non-tender, Full ROM, Nml appearance, No pedal edema Neurologic/Psychiatric: positive: Oriented x3, CN's nml (2-12), Motor nml, Sensation nml, Mood/affect nml - LABS Result Diagrams: 09/19/18 06:35 09/19/18 06:35 Other Lab Results: Laboratory Results WBC 10.6 x10^3/uL (4.8-10.8) 09/19/18 06:35 RBC 3.98 10^6/uL (4.20-5.40) L 09/19/18 06:35 Hgb 12.4 g/dL (12.0-16.0) 09/19/18 06:35 Hct 37.7 % (37.0-47.0) 09/19/18 06:35 MCV 94.7 fL (81.0-99.0) 09/19/18 06:35 MCH 31.2 pg (27.0-31.0) H 09/19/18 06:35 MCHC 33.0 g/dL (32.0-36.0) 09/19/18 06:35 RDW 12.4 % (12.0-15.0) 09/19/18 06:35 Plt Count 231 10^3/uL (130-450) 09/19/18 06:35 MPV 8.3 fL (7.9-10.8) 09/19/18 06:35 Neut # (Auto) 8.1 10^3/uL (1.5-6.6) H 09/19/18 06:35 Lymph # (Auto) 1.5 10^3/uL (1.5-3.5) 09/19/18 06:35 [place] # (Auto) 0.8 10^3/uL (0.0-1.0) 09/19/18 06:35 Eos # (Auto) 0.0 10^3/uL (0.0-0.7) 09/19/18 06:35 Baso # (Auto) 0.1 10^3/uL (0.0-0.1) 09/19/18 06:35 Absolute Nucleated RBC 0.00 x10^3/uL 09/19/18 06:35 Nucleated RBC % 0.0 /100WBC 09/19/18 06:35 Manual Slide Review Indicated 09/18/18 11:36 Platelet Estimate NORMAL (130-450,000) (NORMAL) 09/18/18 11:36 Platelet Morphology NORMAL APPEARANCE (NORMAL) 09/18/18 11:36 RBC Morph Micro Appear NORMAL APPEARANCE (NORMAL) 09/18/18 11:36 PT 11.9 secs (9.9-12.6) 09/19/18 06:35 INR 1.1 (0.8-1.2) 09/19/18 06:35 Sodium 135 mmol/L (135-145) 09/19/18 06:35 Potassium 3.8 mmol/L (3.5-5.0) 09/19/18 06:35 Chloride 103 mmol/L (101-111) 09/19/18 06:35 Carbon Dioxide 23 mmol/L (21-32) 09/19/18 06:35 Anion Gap 9.0 (6-13) 09/19/18 06:35 BUN 27 mg/dL (6-20) H 09/19/18 06:35 Creatinine 0.8 mg/dL (0.4-1.0) 09/19/18 06:35 Estimated GFR (MDRD) 69 (>89) L 09/19/18 06:35 Glucose 92 mg/dL (70-100) 09/19/18 06:35 Lactic Acid 0.9 mmol/L (0.5-2.2) 09/19/18 06:35 Calcium 8.8 mg/dL (8.5-10.3) 09/19/18 06:35 Phosphorus 2.5 mg/dL (2.5-4.6) 09/19/18 06:35 Magnesium 1.7 mg/dL (1.7-2.8) 09/19/18 06:35 Total Bilirubin 0.7 mg/dL (0.2-1.0) 09/19/18 06:35 AST 51 IU/L (10-42) H 09/19/18 06:35 ALT 25 IU/L (10-60) 09/19/18 06:35 Alkaline Phosphatase 47 IU/L (42-121) 09/19/18 06:35 Total Creatine Kinase 884 IU/L (22-269) H 09/19/18 06:35 Troponin I 0.21 ng/mL (<0.49) 09/19/18 00:55 B-Natriuretic Peptide 208 pg/mL (5-100) H 09/19/18 06:35 Total Protein 5.4 g/dL (6.7-8.2) L 09/19/18 06:35 Albumin 3.0 g/dL (3.2-5.5) L 09/19/18 06:35 Globulin 2.4 g/dL (2.1-4.2) 09/19/18 06:35 Albumin/Globulin Ratio 1.3 (1.0-2.2) 09/19/18 06:35 Lipase 18 U/L (22-51) L 09/18/18 11:36 Urine Color YELLOW 09/18/18 10:30 Urine Clarity HAZY (CLEAR) 09/18/18 10:30 Urine pH 7.0 PH (5.0-7.5) 09/18/18 10:30 Ur Specific [place] 1.025 (1.002-1.030) 09/18/18 10:30 Urine Protein 100 mg/dL (NEGATIVE) H 09/18/18 10:30 Urine Glucose (UA) NEGATIVE mg/dL (NEGATIVE) 09/18/18 10:30 Urine Ketones TRACE mg/dL (NEGATIVE) 09/18/18 10:30 Urine Occult Blood SMALL (NEGATIVE) H 09/18/18 10:30 Urine Nitrite NEGATIVE (NEGATIVE) 09/18/18 10:30 Urine Bilirubin NEGATIVE (NEGATIVE) 09/18/18 10:30 Urine Urobilinogen 0.2 (NORMAL) E.U./dL (NORMAL) 09/18/18 10:30 Ur Leukocyte Esterase NEGATIVE (NEGATIVE) 09/18/18 10:30 Urine RBC 11-25 /HPF (0-5) H 09/18/18 10:30 Urine WBC 0-3 /HPF (0-5) 09/18/18 10:30 Ur Squamous Epith Cells MOD Squamous (<= Few) H 09/18/18 10:30 Urine Bacteria Rare /HPF (None Seen) 09/18/18 10:30 Urine Casts 3-5 Granular Casts /LPF 09/18/18 10:30 Ur Microscopic Review INDICATED 09/18/18 10:30 Urine Culture Comments NOT INDICATED 09/18/18 10:30 Urine Opiates Screen NEGATIVE (NEGATIVE) 09/18/18 10:30 Ur Oxycodone Screen NEGATIVE (NEGATIVE) 09/18/18 10:30 Urine Methadone Screen NEGATIVE (NEGATIVE) 09/18/18 10:30 Ur Propoxyphene Screen NEGATIVE (NEGATIVE) 09/18/18 10:30 Ur Barbiturates Screen NEGATIVE (NEGATIVE) 09/18/18 10:30 Ur Tricyclics Screen NEGATIVE (NEGATIVE) 09/18/18 10:30 Ur Phencyclidine Scrn NEGATIVE (NEGATIVE) 09/18/18 10:30 Ur Amphetamine Screen NEGATIVE (NEGATIVE) 09/18/18 10:30 U Methamphetamines Scrn NEGATIVE (NEGATIVE) 09/18/18 10:30 U Benzodiazepines Scrn NEGATIVE (NEGATIVE) 09/18/18 10:30 Urine Cocaine Screen NEGATIVE (NEGATIVE) 09/18/18 10:30 U Cannabinoids Screen NEGATIVE (NEGATIVE) 09/18/18 10:30 Ethyl Alcohol < 5.0 mg/dL 09/18/18 11:36 - DIAGNOSTIC IMAGING Diagnostic Imaging Results: Final report reviewed Diagnostic Imaging Results Comments: Echocardiogram Impression: The left ventricular size is normal. Left ventricular wall thickness is normal. The left ventricular systolic function is hyperdynamic with an ejection fraction of greater than 75%. Impaired relaxation consistent with grade 1 diastolic dysfunction. No regional wall motion abnormalities are seen. The right ventricle is normal in size and function. Mild increase in left atrial volume index. The right atrial size is normal. The aortic valve is trileaflet. There is mild aortic valve sclerosis. There is no evidence of aortic stenosis. There is no evidence of aortic regurgitation. There is thickening of the mitral valve leaflets. No mitral stenosis noted. Mild to moderate mitral annular calcification. There is mild mitral regurgitation. The tricuspid valve appears structurally normal. No tricuspid stenosis noted. Mild tricuspid regurgitation. Normal right ventricular systolic pressure less than 35mmHg. The right ventricular systolic pressure is 30 mmHg at rest Pulmonic valve appears structurally normal. No significant pulmonic regurgitation noted. There is no pulmonic stenosis noted. There is trivial pericardial effusion present. The intra-atrial septum appears normal. The intra-atrial septum is intact on color flow imaging. The aortic root is not well visualized. Proximally, it looked to be normal. The pulmonary artery is normal. The inferior vena cava is normal. No mass or thrombus identified. There is no pleural effusion noted. CT head Impression: No evidence for acute infarction, fracture or intracranial injury. Aging appro priate changes. Elbow x-ray Impression: 1. 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 Mild medial soft tissue swelling, but no definite acute fracture appreciated. 2. Normal left elbow radiographs. Chest x-ray Impression: Normal single view chest. - FOLLOW UP Follow Up: Patient was hospitalized for generalized weakness and was found to have rhabdomyolysis, mildly elevated troponin and leukocytosis. The patient appeared to be dehydrated and was given IV fluids during stay in the hospital for observation. The patient's rhabdomyolysis was resolving. The patient's troponin remained stable and her echocardiogram and EKG were within normal limits. The patient had significant improvement in her generalized weakness. The next morning she was able to eat a full breakfast and ate a full lunch. Patient was able to walk 150 feet with her walker during physical therapy. Arrangements were attempted to be made for the patient to go to an assisted living facility however this was not going to be possible over the weekend. The patient was discharged with her family member who will be taking care of her until the patient is able to go to an assisted living facility. The patient was discharged in stable condition. - TIME SPENT Time Spent in Discharge (Minutes): 40
[2018-09-19 16:48] VITALS: BP 152/71
== END 2018-09-19 17:10 | disposition home or self-care (01) ==
LOC: EDUNIT# → ED 09:51 → OBS 13:39
PROVIDERS: ADMIT Internal Medicine; ATTEND Internal Medicine
DX: R53.1 Weakness (principal); M62.82 Rhabdomyolysis; D72.829 Elevated white blood cell count, unspecified; E87.1 Hypo-osmolality and hyponatremia; E86.0 Dehydration; R79.89 Other specified abnormal findings of blood chemistry; I10 Essential (primary) hypertension; E87.6 Hypokalemia; M19.121 Post-traumatic osteoarthritis, right elbow; Z91.81 History of falling
CPT/HCPCS: 36415; 70450; 71045; 73080; 80053; 81001; 82550; 83605; 83690; 83735; 83880; 84100; 84484; 85025; 85610; 93005; 93306; 96361; 96365; 96366; 96372; 97161; 99284; 99285; A9270; G0378; G8978; G8979; J1650; 80306; 80320; 81003; 87086; 99283

== ENCOUNTER 2018-10-27 13:41 | Emergency (ER) | payer MEDICARE, OTHER ==
[2018-10-27 13:48] VITALS: BP 192/89
--- NOTE | 2018-10-27 15:28 | ED Physician Documentation ---
PD HPI UPPER EXT INJURY - Stated complaint Stated Complaint: RT HAND LAC - Chief complaint Chief Complaint: Laceration - History obtained from History obtained from: Patient - History of Present Illness Location: Right, Hand Type of injury: Laceration (on a knife 2 days ago.) Where injury occurred: Home Timing - onset: How many days ago (2) Timing - duration: Days (2) Timing - details: Abrupt onset Pain level max: 1 Pain level now: 1 Improved by: Rest Worsened by: Moving, Palpating Associated symptoms: No: Weakness, Tingling, Swelling Contributing factors: No: Anticoagulated, Prior ortho surgery Review of Systems Constitutional: denies: Fever Skin: denies: Rash PD PAST MEDICAL HISTORY - Past Medical History Cardiovascular: Hypertension Respiratory: Pneumonia, Other Neuro: Motion sickness Endocrine/Autoimmune: None GI: None, Chronic constipation IMPORT SPECIALIST: Other : None HEENT: None Psych: Depression Musculoskeletal: None Derm: None - Past Surgical History General: Colonoscopy /IMPORT SPECIALIST: Mastectomy HEENT: Cataracts, Tonsil/Adenoidectomy - Present Medications Home Medications: Ambulatory Orders Medication Instructions Recorded Confirmed Ascorbic Acid [Vitamin C] 500 mg PO DAILY 06/26/18 10/27/18 Multivitamin W/Minerals [Theragran 1 tab PO DAILY 06/26/18 10/27/18 M] Triamterene/Hydrochlorothiazid 1 tab PO DAILY 06/26/18 10/27/18 [Triamterene-Hctz 75-50 mg Tab] Verapamil HCl [Verapamil ER] 120 mg PO DAILY 06/26/18 10/27/18 Calcium Carbonate/Vitamin D3 1 tab PO DAILY 09/18/18 10/27/18 [Calcium 600-Vit D3 400 Tablet] - Allergies Allergies/Adverse Reactions: Allergies Allergy/AdvReac Type Severity Reaction Status Date / Time latex Allergy Severe Rash Verified 10/27/18 13:50 pollen extracts Allergy Severe Rash Verified 10/27/18 13:50 wool Allergy Severe Rash Verified 10/27/18 13:50 - Social History Does the pt smoke?: No Smoking Status: Never smoker Does the pt drink ETOH?: Yes Does the pt have substance abuse?: No - Immunizations Immunizations are current?: No Immunizations: TDAP >10years/unknown - POLST Patient has POLST: No POLST Status: Full Code (She really has never thought about this. And because she cannot decide tonight, by default she will be full code.) PD ED PE NORMAL - Vitals Vital signs reviewed: Yes - General General: Alert and oriented X 3, No acute distress - Derm Derm: Warm and dry - Extremities Extremities: Other (R hand - 2cm, curved, superficial laceration. NVI. No signs of infection. on the medial aspect of the dorsum of the hand, ) - Neuro Neuro: Alert and oriented X 3 Results - Vitals Vitals: Vital Signs - 24 hr 10/27/18 13:44 Temperature 36.6 C Heart Rate 107 H Respiratory 16 Rate Blood Pressure 192/89 H O2 Saturation 99 Oxygen O2 Source [With Activity] Room air O2 Source Room air PD MEDICAL DECISION MAKING - ED course Complexity details: considered differential, d/w patient ED course: Mepitel placed over the wound. Wound care performed. Patient counseled regarding signs and symptoms for which I believe and urgent re-evaluation would be necessary. Patient with good understanding of and agreement to plan and is comfortable going home at this time This document was made in part using voice recognition software. While efforts are made to proofread this document, sound alike and grammatical errors may occur. Departure - Departure Disposition: 01 Home, Self Care Clinical Impression: Laceration of hand Qualifiers: Encounter type: initial encounter Foreign body presence: without foreign body Laterality: right Qualified Code(s): S61.411A - Laceration without foreign body of right hand, initial encounter Condition: Good Instructions: ED Laceration Hand Follow-Up: Rosalva Ortiz MD [Primary Care Provider] - Within 1 week (for wound check) Comments: You can apply antibiotic ointment twice a day. Leave the Mepitel in place for at least a week. Follow-up with your doctor for repeat evaluation. Return for redness, swelling or drainage from the wound Discharge Date/Time: 10/27/18 15:46
[2018-10-27] MEDS ORDERED: BACITRACIN OINT TOP STA (15:45)
== END 2018-10-27 15:46 | disposition home or self-care (01) ==
LOC: ED 13:41
DX: S61.411A Laceration without foreign body of right hand, initial encounter (principal); W26.0XXA Contact with knife, initial encounter; Y93.G1 Activity, food preparation and clean up; Y92.009 Unspecified place in unspecified non-institutional (private) residence as the place of occurrence of the external cause; I10 Essential (primary) hypertension
CPT/HCPCS: 99282; 99283

== ENCOUNTER 2018-11-24 22:11 | Outpatient (CLI) | payer MEDICARE, OTHER | END 2018-11-24 22:12 | disposition EMS.NT | LOC: EMS 22:11 | PROVIDERS: ATTEND Surgery | DX: Z03.89 Encounter for observation for other suspected diseases and conditions ruled out (principal) ==

== ENCOUNTER 2019-01-23 14:20 | Emergency (ER) | payer MEDICARE, OTHER ==
[2019-01-23 14:32] VITALS: BP 202/88
--- NOTE | 2019-01-23 14:53 | ED Physician Documentation ---
PD HPI LOWER EXT INJURY - Stated complaint Stated Complaint: L LEG INJ - Chief complaint Chief Complaint: Ext Problem - History obtained from History obtained from: Patient, Friend - History of Present Illness PD HPI LOW EXT INJURY LOCATION: Left (She has had a nonhealing wound in the left leg for the last 3 months. She presents with a friend by private vehicle. She is a fairly vague historian, she states that she saw her PCP, Dr. Ortiz about 3 months ago. At that time she was prescribed an antibiotic but for reasons she really cannot verbalize she did not fill it or did not get it at the pharmacy. She now has home health care and they are dressing the wound but advised to visit to the emergency department for antibiotics today. Is not particularly worse in the patient's mind. She denies any fevers.) Review of Systems Constitutional: denies: Fever, Chills Cardiac: reports: Reviewed and negative Respiratory: reports: Reviewed and negative PD PAST MEDICAL HISTORY - Past Medical History Cardiovascular: Hypertension Respiratory: Pneumonia, Other Neuro: Motion sickness Endocrine/Autoimmune: None GI: None, Chronic constipation MANAGER SOUND: Other : None HEENT: None Psych: Depression Musculoskeletal: None Derm: None - Past Surgical History General: Colonoscopy /MANAGER SOUND: Mastectomy HEENT: Cataracts, Tonsil/Adenoidectomy - Present Medications Home Medications: Ambulatory Orders Medication Instructions Recorded Confirmed Ascorbic Acid [Vitamin C] 500 mg PO DAILY 06/26/18 01/23/19 Multivitamin W/Minerals [Theragran 1 tab PO DAILY 06/26/18 01/23/19 M] Triamterene/Hydrochlorothiazid 1 tab PO DAILY 06/26/18 01/23/19 [Triamterene-Hctz 75-50 mg Tab] Verapamil HCl [Verapamil ER] 120 mg PO DAILY 06/26/18 01/23/19 Calcium Carbonate/Vitamin D3 1 tab PO DAILY 09/18/18 01/23/19 [Calcium 600-Vit D3 400 Tablet] Cephalexin [Keflex] 500 mg PO Q6H #40 capsule 01/23/19 - Allergies Allergies/Adverse Reactions: Allergies Allergy/AdvReac Type Severity Reaction Status Date / Time latex Allergy Severe Rash Verified 01/23/19 14:32 pollen extracts Allergy Severe Rash Verified 01/23/19 14:32 wool Allergy Severe Rash Verified 01/23/19 14:32 - Social History Does the pt smoke?: No Smoking Status: Never smoker Does the pt drink ETOH?: Yes Does the pt have substance abuse?: No - Immunizations Immunizations are current?: No Immunizations: TDAP >10years/unknown - POLST Patient has POLST: No POLST Status: Full Code (She really has never thought about this. And because she cannot decide tonight, by default she will be full code.) PD ED PE NORMAL - Vitals Vital signs reviewed: Yes - General General: Alert and oriented X 3, No acute distress - Extremities Extremities: Other (There is an ulcer on the back of the lower left calf measuring about 3 cm in diameter with a necrotic base that was cultured during examination and mild surrounding CELLULITIS) - Neuro Neuro: Alert and oriented X 3 (but poor historian, vague), Normal speech Results - Vitals Vitals: Vital Signs - 24 hr 01/23/19 14:26 Temperature 36.1 C L Heart Rate 98 Respiratory 16 Rate Blood Pressure 202/88 H O2 Saturation 100 Oxygen O2 Source [With Activity] Room air O2 Source Room air Departure - Departure Disposition: 01 Home, Self Care Clinical Impression: Cellulitis Qualifiers: Site of cellulitis: extremity Site of cellulitis of extremity: lower extremity Laterality: left Qualified Code(s): L03.116 - Cellulitis of left lower limb Condition: Good Record reviewed to determine appropriate education?: Yes Instructions: Cellulitis Dc Prescriptions: Cephalexin [Keflex] 500 mg PO Q6H #40 capsule Comments: Call Dr. Ortiz's office to arrange for a wound check in 2 to 3 days. Return if worsening or if you are running fevers. Your blood pressure was elevated today on check into the emergency department. This does not mean that you have hypertension, it is a common phenomenon to come to the emergency department and have elevated blood pressure. I recommend that you see your primary care physician within the week to have it rechecked when you are feeling better.
== END 2019-01-23 15:01 | disposition home or self-care (01) ==
LOC: ED 14:20
DX: L03.116 Cellulitis of left lower limb (principal); I10 Essential (primary) hypertension; Z90.10 Acquired absence of unspecified breast and nipple
CPT/HCPCS: 87070; 87181; 87205; 99283

== ENCOUNTER 2019-02-10 15:53 | Emergency (ER) | payer MEDICARE, OTHER ==
[2019-02-10 16:02] VITALS: BP 179/81
[2019-02-10] MEDS ORDERED: cefTRIAXone 1 GM VIAL IM STA (16:28)
[2019-02-10] MEDS ORDERED: LIDOCAINE 1% 2 ML VIAL MC ONE (16:28)
--- NOTE | 2019-02-10 16:30 | ED Physician Documentation ---
History of Present Illness - Stated complaint Stated Complaint: LT LEG WOUND CHECK - Chief complaint Chief Complaint: Wound - History obtained from History obtained from: Patient, Family - History of Present Illness Pain level max: 0 Pain level now: 0 - Additonal information Additional information: 83-year-old female presents to the emergency department with chronic left leg wounds. This is been ongoing for the past 6 months. She is recently fired from [employer] for missing appointments and driving herself away from the house. She is not homebound. She states she was prescribed Keflex but only took part of it. States there is increased redness and drainage from the wounds. No fevers. No nausea. No vomiting. 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: Other : None HEENT: None Psych: Depression Musculoskeletal: None Derm: None - Past Surgical History General: Colonoscopy /FABRICATION MIG WELDER: Mastectomy HEENT: Cataracts, Tonsil/Adenoidectomy - Present Medications Home Medications: Ambulatory Orders Medication Instructions Recorded Confirmed Ascorbic Acid [Vitamin C] 500 mg PO DAILY 06/26/18 01/23/19 Multivitamin W/Minerals [Theragran 1 tab PO DAILY 06/26/18 01/23/19 M] Triamterene/Hydrochlorothiazid 1 tab PO DAILY 06/26/18 01/23/19 [Triamterene-Hctz 75-50 mg Tab] Verapamil HCl [Verapamil ER] 120 mg PO DAILY 06/26/18 01/23/19 Calcium Carbonate/Vitamin D3 1 tab PO DAILY 09/18/18 01/23/19 [Calcium 600-Vit D3 400 Tablet] Cephalexin [Keflex] 500 mg PO Q6H #40 capsule 01/23/19 Bacitracin Zinc Oint 1 applic TOP BID #1 tube 02/10/19 Cephalexin [Keflex] 500 mg PO Q6H #28 capsule 02/10/19 - Allergies Allergies/Adverse Reactions: Allergies Allergy/AdvReac Type Severity Reaction Status Date / Time latex Allergy Severe Rash Verified 02/10/19 16:05 pollen extracts Allergy Severe Rash Verified 02/10/19 16:05 wool Allergy Severe Rash Verified 02/10/19 16:05 - Social History Does the pt smoke?: No Smoking Status: Never smoker Does the pt drink ETOH?: Yes Does the pt have substance abuse?: No - Immunizations Immunizations are current?: No Immunizations: TDAP >10years/unknown - POLST Patient has POLST: No POLST Status: Full Code (She really has never thought about this. And because she cannot decide tonight, by default she will be full code.) PD ED PE NORMAL - Vitals Vital signs reviewed: Yes - General General: Alert and oriented X 3, No acute distress - HEENT HEENT: Moist mucous membranes - Neck Neck: Supple, no meningeal sign - Derm Derm: Warm and dry - Extremities Extremities: Other (L leg - NVI, 3 lesions, medial aspect 1cm, no drainage, late ral aspect 3cm round and 5cm round with yellow drainage. mild surrounding erythema.) - Neuro Neuro: Alert and oriented X 3 Results - Vitals Vitals: Vital Signs - 24 hr 02/10/19 02/10/19 15:57 16:11 Temperature 37.1 C Heart Rate 96 Respiratory 17 18 Rate Blood Pressure 179/81 H O2 Saturation 98 Oxygen O2 Source [With Activity] Room air O2 Source Room air - Labs Labs: Microbiology 02/10/19 16:30 Wound Culture - Preliminary Left Lower Extremity - Wound PD MEDICAL DECISION MAKING - ED course Complexity details: considered differential, d/w patient, d/w family, d/w account consultant ED course: 83-year-old female with chronic nonhealing wounds to the left lower extremity. These were cleansed and dressed with Mepitel then bacitracin and Kerlix. Will place on oral antibiotics. Given Rocephin IM. She is well-appearing, nontoxic. Afebrile. Wounds were cultured. Attempted to contact her primary care provider, Dr. Ortiz but she is unavailable. Discussed with Dr. Royal who is covering for her who will see her in the office on Friday. Patient and family counseled regarding signs and symptoms for which I believe and urgent re- evaluation would be necessary. Patient with good understanding of and agreement to plan and is comfortable going home at this time This document was made in part using voice recognition software. While efforts are made to proofread this document, sound alike and grammatical errors may occur. Departure - Departure Disposition: 01 Home, Self Care Clinical Impression: Chronic wound of extremity Cellulitis Qualifiers: Site of cellulitis: extremity Site of cellulitis of extremity: lower extremity Laterality: left Qualified Code(s): L03.116 - Cellulitis of left lower limb Condition: Good Instructions: ED Infec Skin Cellulitis, ED Wound Care Follow-Up: Rosalva Ortiz MD [Primary Care Provider] - Raudel Royal [Physician No Access] - 02/12/19 Prescriptions: Bacitracin Zinc Oint 1 applic TOP BID #1 tube Cephalexin [Keflex] 500 mg PO Q6H #28 capsule Comments: You need to follow-up with Dr. Royal or 1 of his partners on Friday. You need a referral to wound care. This will take several weeks to months to heal. Take all antibiotics until gone. Leave the Mepitel in place for at least 10 days. You can apply the antibiotic ointment over the Mepitel. Return if you worsen Discharge Date/Time: 02/10/19 17:03
[2019-02-10] MEDS ORDERED: BACITRACIN OINT TOP ONE (16:33)
== END 2019-02-10 17:03 | disposition home or self-care (01) ==
LOC: ED 15:53
DX: S81.802A Unspecified open wound, left lower leg, initial encounter (principal); L03.116 Cellulitis of left lower limb; I10 Essential (primary) hypertension
CPT/HCPCS: 87070; 87205; 96372; 99283; A9270; 87077; 87181

== ENCOUNTER 2019-03-06 13:31 | Outpatient (CLI) | payer MEDICARE, OTHER ==
--- NOTE | 2019-03-06 23:11 | Ultrasound Report ---
Reason: NON-HEALING WOUND, LEG ULCER Procedure Date: 03/06/2019 Accession Number: [id number] / [id number] Procedure: US - Duplex Ext Veins Bilateral CPT Code: FULL RESULT: EXAM: BILATERAL LOWER EXTREMITY VENOUS ULTRASOUND EXAM DATE: 03/06/2019 03:00 PM. CLINICAL HISTORY: NON-HEALING WOUND, LEG ULCER. COMPARISON: None. TECHNIQUE: Real-time sonographic vascular imaging was performed by the natural gas field processing supervisor through the lower extremities utilizing both color-flow and Doppler spectral analysis. Multiple product support sales representative static images were saved for review. FINDINGS: Right: Common Femoral Vein (CFV): Normal. CFV-GSV Junction: Normal. Profunda Femoral Vein (PFV): Normal. Femoral Vein (FV) Prox: Normal. Femoral Vein (FV) Mid: Normal. Femoral Vein (FV) Dist: Normal. Popliteal Vein: Normal. Posterior Tibial Veins: Normal. Peroneal Veins: Normal. Left: Common Femoral Vein (CFV): Normal. CFV-GSV Junction: Normal. Profunda Femoral Vein (PFV): Normal. Femoral Vein (FV) Prox: Normal. Femoral Vein (FV) Mid: Normal. Femoral Vein (FV) Dist: Normal. Popliteal Vein: Normal. Posterior Tibial Veins: Normal. Peroneal Veins: Not well seen due to open wound. Other: Study limited due to open wound in the left leg. IMPRESSION: 1. Suboptimal visualization of left peroneal vein. 2. Given the limitations, no evidence for deep venous thrombosis. RADIA
--- NOTE | 2019-03-07 00:33 | Ultrasound Report ---
Reason: NON-HEALING WOUND, LEG ULCER Procedure Date: 03/06/2019 Accession Number: [id number] / [id number] Procedure: US - Duplex Lwr Ext Arterial Bilat CPT Code: FULL RESULT: EXAM: Bilateral Lower Extremity Arterial Doppler Ultrasound EXAM DATE: 03/06/2019 03:00 PM. CLINICAL HISTORY: Non-healing wound, leg ulcer. COMPARISON: None. TECHNIQUE: Real-time sonographic vascular imaging was performed by the senior oracle soa developer, utilizing color-flow, Doppler flow, and spectral analysis. Multiple labor relations representative static images were saved for review. FINDINGS: Patchy atheromatous calcified and noncalcified plaques are noted. No hemodynamically significant stenosis, occlusion, dissection or aneurysm identified in either lower extremity. Monophasic waveforms are noted in the right anterior tibial, posterior tibial and peroneal arteries. Monophasic waveforms are noted in the left popliteal, anterior tibial, posterior tibial and dorsalis pedis artery. Left peroneal artery is not seen. Focal region of atheromatous calcified and noncalcified plaques are noted in the left common femoral artery with mildly elevated velocities. By velocity criteria, these findings suggest a stenosis of 30-49%. Right Lower Extremity: OFFICE SUPPORT: PSV 135 cm/sec, triphasic. PSFA: PSV 138 cm/sec, biphasic. MSFA: PSV 101 cm/sec, biphasic. DSFA: PSV 85 cm/sec, biphasic. PFA: PSV 99 cm/sec, biphasic. POP: PSV 76 cm/sec, biphasic. LIZBETH: PSV 48 cm/sec, monophasic. BASEBALL SEWER HAND: PSV 25 cm/sec, monophasic. PER: PSV 44 cm/sec, monophasic. DPA: PSV 50 cm/sec biphasic. Left Lower Extremity: X OFFICE SUPPORT: PSV 185 cm/sec, triphasic. X PSFA: PSV 175 cm/sec, monophasic. MSFA: PSV 103 cm/sec, triphasic. DSFA: PSV 183 cm/sec, monophasic. PFA: PSV 117 cm/ sec, triphasic. POP: PSV 104 cm/ sec, monophasic. LIZBETH: PSV 52 cm/ sec, monophasic. BASEBALL SEWER HAND: PSV 13 cm/ sec, monophasic. PER: Not seen. DPA: PSV 53 cm/ sec, monophasic. No ankle-brachial index calculated. IMPRESSION: 1. No hemodynamically significant stenosis, occlusion, dissection or aneurysm identified in either lower extremity. RADIA
== END 2019-03-06 13:32 | disposition home or self-care (01) ==
LOC: DI 13:31
PROVIDERS: ATTEND Internal Medicine
DX: L97.929 Non-pressure chronic ulcer of unspecified part of left lower leg with unspecified severity (principal)
CPT/HCPCS: 93925; 93970